=== PATIENT | male | born 1970 | race Caucasian/White ===

== ENCOUNTER 2024-08-09 11:19 | Outpatient (CLI) | payer OTHER, SELFPAY ==
--- NOTE | ~2024-08-09 | CT_ITS ---
CT Scan of the Chest without Contrast: Clinical Indication: Lung nodule Technique: Contiguous sections were acquired throughout the chest without intravenous contrast. Dose reduction technique was used on this scan by utilizing automated exposure control and iterative recon struction technique. The dose-length product (DLP) was 213.37 mGy-cm. Findings: There is no evidence of any significant mediastinal, hilar or axillary lymphadenopathy. Coronary aung ry calcifications present. Small pericardial effusion present. No pleural effusions. 7 mm pleural-based nodule present at the right lower lobe (axial image 82). 4 mm right lower lobe nod ule present (axial and 98). 4 mm left basilar pulmonary nodule present (axial image 122). Additional 2 mm right basilar pulmonary nodule present (axial image 121). Images through the upper abdomen reveal no abnormalities. Impression: Subcentimeter pulmonary nodules, largest measuring 7 mm. According to Fleischner Society criteria, fo r a low-risk patient, recommend follow CT scan in 6-12 months, then consider additional 18-24 month C T. For high-risk patients, follow-up CT scans at both 6-12 months and 18-24 months are recommended. Small pericardial effusion. Reviewed, dictated and finalized at location . Impression: Subcentimeter pulmonary nodules, largest measuring 7 mm. According to Fleischne r Society criteria, for a low-risk patient, recommend follow CT scan in 6-12 mo nths, then consider additional 18-[address] For high-risk patients, follow-u p CT scans at both 6-12 months and 18-24 months are recommended. Small pericardial effusion.
--- OUTSIDE RECORDS SUMMARY | 2024-08-09 11:22 | XMS_ITS | Referral Summary ---
Author Organization [address] Address [address] [place] [id number] Care Team Providers Care Examining Officer Name Role Phone Unknown, Notinfile Primary Care Provider Unavail able Encounters Date Type Department Care Team Description 06/02/2024 2:30 PM AQUATICS COORDINATOR Office Visit [facility] at [address] [address] Neetu Holman NP Swelling of eyelid, left (Primary Dx); Local skin infection from Last 3 Months Allergies Active Allergy Reactions Criticality Noted Date Comments Tramadol Other (See comments) High 11/24/2009 Note: CEZIURES Medications atorvastatin (LIPITOR) 20 mg tablet Take 1 tablet (20 mg total) by mouth daily 4 Active atorvastatin (LIPITOR) 40 mg tablet Take 1 tablet (40 mg total) by mouth daily 4 Active carvediloL (COREG) 25 mg tablet Take 1 tablet (25 mg total) by mouth 2 (two) times a day 3 Active ezetimibe (ZETIA) 10 mg tablet Take 1 tablet (10 mg total) by mouth daily 4 Active fluticasone propionate (FLONASE) 50 mcg/actuation nasal spray Administer 2 sprays in each nostril once daily for 1 week, then may adjust to 1-2 sprays in each nostril once daily 5 Active hydrALAZINE (APRESOLINE) 50 mg tablet Take 1 tablet (50 mg total) by mouth 3 (three) times a day 4 Active ketorolac (TORADOL) 10 mg tablet TAKE 1 TAB BY MOUTH 4 TIMES A DAY NEEDED FOR PAIN-MAX DURATION OF 5 DAYS 5 Active losartan-hydroC HLOROthiazide (HYZAAR) 100-12.5 mg per tablet Losartan Potassium-HCTZ 100-12.5 MG Oral Tablet QTY: 30 Days: 30 Refills: 0 Written: 03/30/22 Patient Instructions: 2 Active NIFEdipine XL 90 mg 24 hr tablet Take 1 tablet (90 mg total) by mouth daily 3 Active omeprazole (PriLOSEC) 40 mg capsule TAKE 1 CAPSULE BY MOUTH EVERY DAY *MAINTENANCE REFILLS EXCEEDED* 5 Active sildenafiL (VIAGRA) 100 mg tablet Take 1 tablet (100 mg total) by mouth as needed 3 Active Active Problems No known active problems Social History Tobacco Use Types Packs/Day Years Used Date Smoking Tobacco: Never Assessed Sex and Gender Information Value Date Recorded Sex Assigned at Not on file Legal Sex Male 7:29 PM AQUATICS COORDINATOR Gender Identity Not on file Sexual Orientation Not on file Last Filed Vital Signs Vital Sign Reading Time Taken Comments Blood Pressure 131/83 06/02/2024 2:40 PM AQUATICS COORDINATOR Pulse 82 06/02/2024 2:40 PM AQUATICS COORDINATOR Temperature 36.5 C (97.7 F) 06/02/2024 2:40 PM AQUATICS COORDINATOR Respiratory Rate 22 06/02/2024 2:40 PM AQUATICS COORDINATOR Oxygen Saturation 94% 06/02/2024 2:40 PM AQUATICS COORDINATOR Inhaled Oxygen Concentration - - Weight 117.9 kg (260 lb) 06/02/2024 2:40 PM AQUATICS COORDINATOR Height - - Body Mass Index - - Plan of Treatment Not on file Insurance [facility] Care Teams Examining Officer Relationship Specialty Start Date End Date Unknown, Notinfile PCP - General 03/21/23
--- OUTSIDE RECORDS SUMMARY | 2024-08-09 11:22 | XMS_ITS | Encounter Summary ---
Author Organization [facility] Address [address] [place] [address] Care Team Providers Care Quality Process Auditor Name Role Phone Heriberto Okeefe MD Primary Care Provider [phone] Encounter Details Date Type Department Care Team (Late st Contact Info) Description 01/03/2021 [facility] Message [facility] [address] [place] [address] Heriberto Okeefe MD [address] [address] RE: Other Social History Tobacco Use Types Packs/Day Years Used Date Smoking Tobacco: Former Cigarettes 1.5 34 1 06/13/1985 - 04/12/2020 Smokeless Tobacco: Never Comments:vaping only right n ow Alcohol Use Standard Drinks/Week Comments No 0 (1 standard drink = 0.6 oz pur e alcohol) AUDIT-C Answer Date Recorded Frequency of Alcohol Consumption Never 04/24/2019 Average Number of Drinks Not on file 019 Frequency of Binge Drinking Not on file 03/31 PHQ-2 Answer Date Recorded PHQ-2 Score - If the patient scores above 3, please move on to questions 3-9 6 11/12/2020 Sex and Gender Information Value Date Recorded Sex Assigned at Not on file Legal Sex Male 7:45 PM CDT Gender Identity Not on file Sexual Orientation Not on file documented as of this encounter Progress Notes * Heriberto Okeefe MD - 01/05/2021 5:26 PM CDT If he just started the combo with HCTZ, give it another month prior to any changes. * Mai Rob RN - 01/05/2021 8:38 AM CDT 1 month update on BP. Any new orders? documented in this encounter Plan of Treatment Not on file documented as of this encounter Visit Diagnoses Not on filedocumented in this encounter Additional Health Concerns Assessment Noted Time PHQ-9 Depression Total Score: 16 07/16 021 2:41 PM CDT documented as of this encounter Care Teams Quality Process Auditor Relationship Specialty Start Date End Date Heriberto Okeefe MD [address] [address] PCP - General FAMILY PRACTICE 12/10/19 documented as of this encounter
--- OUTSIDE RECORDS SUMMARY | 2024-08-09 11:22 | XMS_ITS | Clinical Summary ---
Author Organization [address] Address [address] [place] [phone] Care Team Providers Care Staple Side Laster Name Role Phone Unknown, Notinfile Primary Care Provider Unavail able Allergies Active Allergy Reactions Criticality Noted Date [...] Active Active Problems No known active problems Encounters Date Type Department Care Team Description 06/02/2024 2:30 PM MIXING MACHINE TENDER CORK GASKET Office Visit [facility] at [address] [address] Neetu Holman NP Swelling of eyelid, left (Primary Dx); Local skin infection from Last 3 Months Social History Tobacco Use Types Packs/Day Years Used Date Smoking Tobacco: Never Assessed Sex and Gender Information Value Date Recorded Sex Assigned at Not on file Legal Sex Male 7:29 PM MIXING MACHINE TENDER CORK GASKET Gender Identity Not on file Sexual Orientation Not on file Obstetrics History Last Filed Vital Signs Vital Sign Reading Time Taken Comments Blood Pressure 131/83 06/02/2024 2:40 PM MIXING MACHINE TENDER CORK GASKET Pulse 82 06/02/2024 2:40 PM MIXING MACHINE TENDER CORK GASKET Temperature 36.5 C (97.7 F) 06/02/2024 2:40 PM MIXING MACHINE TENDER CORK GASKET Respiratory Rate 22 06/02/2024 2:40 PM MIXING MACHINE TENDER CORK GASKET Oxygen Saturation 94% 06/02/2024 2:40 PM MIXING MACHINE TENDER CORK GASKET Inhaled Oxygen Concentration - - Weight 117.9 kg (260 lb) 06/02/2024 2:40 PM MIXING MACHINE TENDER CORK GASKET Height - - Body Mass Index - - Plan of Treatment Health Maintenance Due Date Last Done Comments Colon Cancer Screening-Colonoscopy 1968 Depression Screening 1968 Hepatitis C Screening 1968 Prostate Cancer Screening-PSA 1968 Hepatitis B Screening 1986 Regular Well Visit/Exam 18-64 1986 Zoster Vaccine (1 of 2) 2018 Covid-19 Vaccine (2023-2 5 season) 2023 07/30/2020, 07/02/2020 Influenza Vaccine (#1) 2023 , 01/23/2020, 03/27/2018 DTaP/Tdap/Td Vaccine (3 - Td or Tdap) 08/20/2033 08/21/2023, 09/13/2012 Pneumococcal vaccine <65 Aged Out No longer eligible based on patient's age to complete this topic Insurance Care Teams Staple Side Laster Relationship Specialty Start Date End Date Unknown, Notinfile PCP - General 03/21/23
--- OUTSIDE RECORDS SUMMARY | 2024-08-09 11:22 | XMS_ITS | Clinical Summary ---
Author Organization [facility] Address [address] [place] [address] Phone Care Team Providers Care Jet Wiper Name Role Phone Clifford Jensen MD Primary Care Provider [phone] Allergies Active Allergy Reactions Criticality Noted Date Comments Tramadol Other (see Comments) High 11/24/2009 Note: CEZIURES Medications sildenafil citrate (VIAGRA) 100 MG Tablet Take 1 Tablet by mouth as needed for Erectile Dysfunction. 10 Tablet 1 3 Active NIFEdipine (PROCARDIA-XL) 90 MG TABLET SR 24 HR Take 90 mg by mouth daily. 4 Active carvedilol (COREG) 25 MG Tablet Take 25 mg by mouth 2 times daily. Active Ascorbic Acid (VITAMIN C PO) Take 500 mg by mouth daily. Active VITAMIN D PO Take 50,000 Units by mouth daily. Active losartan-hydrochlor othiazide (HYZAAR) 100-12.5 MG Tablet Losartan Potassium-HC TZ 100-12.5 MG Oral Tablet QTY: 30 Days: 30 Refills: 0 Written: 03/30/22 Patient Instructions : 2 Active hydrALAZINE 50 MG Tablet 4 Active atorvastatin (LIPITOR) 20 MG TabletIndications:M ixed hyperlipidemia Take 1 Tablet by mouth daily. 90 Tablet 1 4 Active Active Problems Problem Noted Date Diagnosed Date Chronic pain 03/18/2018 Generalized anxiety disorder 03/18/2018 Hyperlipidemia 03/18/2018 Anxiety 11/24/2009 Dyslipidemia 11/24/2009 Family history of ischemic heart disease 010 History of seizure disorder 11/24/2009 Primary hypertension 11/24/2009 Encounters Date Type Department Care Team Description 06/02/2024 Telephone [facility] [address] [place] [phone] Clifford Jensen MD 05/31/2024 [facility] [address] [place] [address] Radha Hudson, STAGE HAND, SENIOR MAINFRAME PROGRAMMER ANALYST from Last 3 Months Immunizations Immunization Administration Dates Next Due Influenza Vaccine, Quadrivalent, PF 02/25/2021,0 01/23/2020,03/27/2018 Influenza Vaccine,unspecified Formulation 2020,01/23/2020,03/27/2018 TD VACCINE 08/21/2023 TDAP Vaccine 09/13/2012 Family History Medical History Relation Name Comments Cancer Brother Prashanth Lung Cancer Brother Prashanth Heart Attack Father Philip Kidney Disease Mother Millicent Stroke Mother Millicent Congestive Heart Failure Niece 30 Heart Attack Sister 1 Fawn Aneurysm Sister 2 Oliva brain Congestive Heart Failure Sister 2 Oliva Seizures Sister 2 Oliva Relation Name Status Comments Brother Prashanth Alive Father Philip Mother Millicent Niece Sister 1 Fawn Sister 2 Oliva Social History Tobacco Use Types Packs/Day Years Used Date Smoking Tobacco: Former Cigarettes 1.5 38 0 07/29/1984 - 07/29/2022 Smokeless Tobacco: Never Tobacco Cessation:Counseling Given: Not Answered Alcohol Use Standard Drinks/Week Comments Not Currently 0 (1 standard drink = 0.6 oz pur e alcohol) [facility] Utilities Answer Date Recorded In the past 12 months has [employer], gas, oil, or water [employer] threatened to shut off services in your home? No 08/20/2023 Social Connection and Isolation Panel [NHANES] A nswer Date Recorded In a typical week, how many times do you talk on the phone with family, friends, or neighbors? Three times a week 08/20/2023 How often do you get togethe r with friends or relatives? Once a week 08/20/2023 How often do you attend [facility] or restorationism services? Never 08/20/2023 Do you belong to any clubs o r organizations such as jew groups, unions, fraternal or athletic groups, or school groups? No 08/20/2023 How often do you attend meet ings of the clubs or organizations you belong to? Never 08/20/2023 Are you , , di vorced, , never , or living with a partner? 08/20/2023 AUDIT-C Answer Date Recorded Q1: How often do you have a drink containing alcohol? Never 08/20/2023 Q2: How many drinks containi ng alcohol do you have on a typical day when you are drinking? Patient does not drink Q3: How often do you have si x or more drinks on one occasion? Never 08/20/2023 Overall Financial Resource Strain (CARDIA) Answe r Date Recorded How hard is it for you to pa y for the very basics like food, housing, medical care, and heating? Not hard at all 08/20/2023 [facility] - Occupational Stress Questionnaire Answer Date Recorded Do you feel stress - tense, restless, nervous, or anxious, or unable to sleep at night because your mind is troubled all the time - these days? To some extent 08/20/2023 Exercise Vital Sign Answer Date Recorde d On average, how many days pe r week do you engage in moderate to strenuous exercise (like a brisk walk)? 0 days 08/20/2023 On average, how many minutes do you engage in exercise at this level? 0 min 08/20/2023 Hunger Vital Sign Answer Date Recorded Within the past 12 months, y ou worried that your food would run out before you got the money to buy more. Never true 08/20/19 24 Within the past 12 months, t he food you bought just didn't last and you didn't have money to get more. Never true 08/20/2023 PRAPARE - Transportation Answer Date Re corded In the past 12 months, has l ack of transportation kept you from medical appointments or from getting medications? No 07/30 In the past 12 months, has l ack of transportation kept you from meetings, work, or from getting things needed for daily living? No 08/20/2023 Housing Stability Vital Sign Answer [place] e Recorded In the last 12 months, was t here a time when you were not able to pay the mortgage or rent on time? No 08/20/2023 In the last 12 months, how many places have you lived? 1 08/20/2023 In the last 12 months, was t here a time when you did not have a steady place to sleep or slept in a halfway (including now)? No 08/20/2023 Sexually Active Control Partners Comments Yes Female Sex and Gender Information Value Date Recorded Sex Assigned at Not on file Legal Sex Male 11:21 PM CDT Gender Identity Not on file Sexual Orientation Not on file Last Filed Vital Signs Vital Sign Reading Time Taken Comments Blood Pressure 146/98 11/30/2023 4:49 PM CDT Pulse 65 11/30/2023 4:49 PM CDT Temperature 36.6 C (97.8 F) 11/30/2023 4:49 PM CDT Respiratory Rate 17 11/30/2023 4:49 PM CDT Oxygen Saturation 96% 11/30/2023 4:49 PM CDT Inhaled Oxygen Concentration - - Weight 122.5 kg (270 lb) 11/30/2023 4:49 PM CDT Height 185.4 cm (6' 1 ) 11/30/2023 4:49 PM CDT Body Mass Index 35.62 11/30/2023 4:49 PM CDT Plan of Treatment Health Maintenance Due Date Last Done Comments Colonoscopy 2013 Colorectal Cancer Screening 2013 Cologuard 2018 Immunochemical Fecal Occult Blood 2018 Pneumococcal Immunization (50+ years) (1 of 1 - PCV) 2018 Zoster Immunization (1 of 2) 2018 Influenza Immunization (Season Ended) 2024 02/25/2021, 02/25/2021, 01/23/2020, Additional history exists Lung Cancer Screening 01/18/2025 01/19/2024, 024 Td Immunization Every 10 Years (Adults With 1 Tdap) 08/20/2033 08/21/2023, 09/13/2012 Respiratory Syncytial Virus (RSV) Immunization (Adult) (1 - 1-dose 75+ series) 11/11/2043 SARS-COV-2 Immunization Discontinued 07/30/2020, 07/02 DTaP/Tdap/Td Immunization Discontinued 08/21/2023, PSA Discussion Completed 08/28/2023, 09/28, 08/08/2016 Hepatitis B Immunization Discontinued Hepatitis C Virus (HCV) Screening Discontinued Meningococcal Immunization (ACWY) Aged Out No longer eligible based on patient's age to complete this topic Rotavirus Immunization Aged Out No lo nger eligible based on patient's age to complete this topic Procedures Procedure Name Priority Date/Time Associated Diagnosis Comments CT CHEST SCREENING WO Routine 01/19/2024 1:13 PM CDT Lung nodule PSA SCREEN 08/28/2023 12:00 AM CDT from Last 3 Months or Most Recently Relevant to Health Maintenance Results * CT CHEST SCREENING WO (01/19/2024 1:13 PM CDT) Anatomical Region Laterality Modality Chest N/A Computed Tomogra phy 01/24/2024 9:29 AM CDT Impressions 01/24/2024 9:32 AM CDT IMPRESSION: 1. Slight interval increase in size of a left lower lobe pulmonary nodule measuring 6.5 mm today, previously measured 5 mm. 2. An 8 mm average diameter nodule in the right lower lobe is unchanged. Additional pulmonary nodules are unchanged. 3. Mild emphysema. 4. Multivessel coronary artery calcifications. 5. Small pericardial effusion, unchanged. Lung-RADS category 4A: Suspicious. Recommendation: Low dose CT of chest in 3 months. Narrative 01/24/2024 9:32 AM CDT EXAM DESCRIPTION: CT CHEST SCREENING WO REASON FOR STUDY: Screening CT of the chest in a former smoker with a 53 pack year smoking history. Additional history: Stopped smoking age 52. TECHNIQUE: Low dose CT scan of the chest was performed without intravenous contrast using helical scanning technique. The exam extends from the lung apices through the lung bases. Automatic exposure control was used as a dose optimization technique. RADIATION DOSE: CT dose index volume (CTDIvol) = 2.83 mGy COMPARISON: CT chest 10/09/2023 FINDINGS: SMOKING RELATED LUNG DISEASE: Mild emphysema. LUNG NODULES: RIGHT UPPER LOBE: none RIGHT MIDDLE LOBE: Unchanged 4 mm solid nodule on image 178. Unchanged 5 mm solid nodule on image 131 along the pleura. RIGHT LOWER LOBE: Unchanged 8 mm average diameter ovoid solid nodule adjacent to the pleura on image 131. Unchanged 5 mm solid nodule on image 165. Unchanged 5 mm solid nodule on image 175. Unchanged 6 mm solid nodule on image 210. LEFT UPPER LOBE: none LEFT LOWER LOBE: 6.5 mm solid nodule previously measured 5 mm on image 210. CORONARY ARTERY CALCIFICATION: Multivessel coronary artery calcifications. OTHER: There is no pleural effusion or pneumothorax. The central airway is patent. Heart size is normal. There is a small pericardial effusion which is unchanged. Thoracic aorta is normal in course and caliber and contains a small amount of calcified atherosclerotic plaque. There are prominent but nonenlarged mediastinal lymph nodes measuring up to 7 mm. No axillary lymphadenopathy. The visualized portions of the upper abdomen are unremarkable. There are no suspicious osseous lesions. THIS IS AN ELECTRONICALLY VERIFIED FINAL REPORT 01/24/2024 9:29 AM - Electronically signed by Britton Parson M.D. AM: AM Report ID: [id number] Reading Location: [id number] Procedure Note Britton Parson MD - 01/24/2024 EXAM DESCRIPTION: CT CHEST SCREENING WO REASON FOR STUDY: Screening CT of the chest in a former smoker with a 53 pack year smoking history. Additional history: Stopped smoking age 52. TECHNIQUE: Low dose CT scan of the chest was performed without intravenous contrast using helical scanning technique. The exam extends from the lung apices through the lung bases. Automatic exposure control was used as a dose optimization technique. RADIATION DOSE: CT dose index volume (CTDIvol) = 2.83 mGy COMPARISON: CT chest 10/09/2023 FINDINGS: SMOKING RELATED LUNG DISEASE: Mild emphysema. LUNG NODULES: RIGHT UPPER LOBE: none RIGHT MIDDLE LOBE: Unchanged 4 mm solid nodule on image 178. Unchanged 5 mm solid nodule on image 131 along the pleura. RIGHT LOWER LOBE: Unchanged 8 mm average diameter ovoid solid nodule adjacent to the pleura on image 131. Unchanged 5 mm solid nodule on image 165. Unchanged 5 mm solid nodule on image 175. Unchanged 6 mm solid nodule on image 210. LEFT UPPER LOBE: none LEFT LOWER LOBE: 6.5 mm solid nodule previously measured 5 mm on image 210. CORONARY ARTERY CALCIFICATION: Multivessel coronary artery calcifications. OTHER: There is no pleural effusion or pneumothorax. The central airway is patent. Heart size is normal. There is a small pericardial effusion which is unchanged. Thoracic aorta is normal in course and caliber and contains a small amount of calcified atherosclerotic plaque. There are prominent but nonenlarged mediastinal lymph nodes measuring up to 7 mm. No axillary lymphadenopathy. The visualized portions of the upper abdomen are unremarkable. There are no suspicious osseous lesions. THIS IS AN ELECTRONICALLY VERIFIED FINAL REPORT 01/24/2024 9:29 AM - Electronically signed by Britton Parson M.D. AM: AM Report ID: [id number] Reading Location: [id number] IMPRESSION: 1. Slight interval increase in size of a left lower lobe pulmonary nodule measuring 6.5 mm today, previously measured 5 mm. 2. An 8 mm average diameter nodule in the right lower lobe is unchanged. Additional pulmonary nodules are unchanged. 3. Mild emphysema. 4. Multivessel coronary artery calcifications. 5. Small pericardial effusion, unchanged. Lung-RADS category 4A: Suspicious. Recommendation: Low dose CT of chest in 3 months. Divya Ochoa APRN, BRITTANY IMG CT ORDERABLES Fi nal Result * PSA SCREEN (08/28/2023 12:00 AM CDT) PSA SCREEN, TOTAL 0.4 SCAN 08/28/2023 Provider Scan CHEMISTRY ORDERABLES Final Resul t SCAN from Last 3 Months or Most Recently Relevant to Health Maintenance Insurance [facility] Care Teams Jet Wiper Relationship Specialty Start Date End Date Clifford Jensen MD [address] [place] [id number] PCP - General Family Medicine 09/27/21
--- OUTSIDE RECORDS SUMMARY | 2024-08-09 11:22 | XMS_ITS | Clinical Summary ---
Author Organization [employer] [facility] Address [address] [facility] Attn: Epic Prelude ADT SIRI HOLT [place] [address] Care Team Providers Care Pocket Maker Name Role Phone Unavailable Primary Care Provider Unavailabl e Medications atorvastatin (LIPITOR) 40 mg tablet Take 1 Tablet (40 mg) by mouth daily. 90 Tablet 3 04/14/2024 3:57 PM FAGOTING MACHINE OPERATOR 4 Active ezetimibe (ZETIA) 10 mg tablet Take 1 Tablet (10 mg) by mouth daily. 90 Tablet 3 04/14/2024 3:57 PM FAGOTING MACHINE OPERATOR 4 Active carvediloL (COREG) 25 mg tablet Take 1 Tablet (25 mg) by mouth 2 times daily. 180 Tablet 3 04/14/2024 3:57 PM FAGOTING MACHINE OPERATOR 4 Active carvediloL (COREG) 25 mg tablet Take 1 Tablet (25 mg) by mouth 2 times daily. 180 Tablet 3 4 Active atorvastatin (LIPITOR) 20 mg tablet Take 1 Tablet (20 mg) by mouth daily. 90 Tablet 1 4 Active losartan (COZAAR) 100 mg tablet Take 1 Tablet (100 mg) by mouth daily. 90 Tablet 3 07/20/2024 2:59 PM CDT 4 Active carvediloL (COREG) 25 mg tablet Take 1 Tablet (25 mg) by mouth 2 times daily. 180 Tablet 3 07/27/2024 3:19 PM CDT 4 Active NIFEdipine (PROCARDIA XL) 90 mg Extended Release 24 hour tablet Take 1 Tablet (90 mg) by mouth daily. 90 Tablet 2 07/20/2024 2:59 PM CDT 4 Active fluticasone propionate (FLONASE) 50 mcg/spray [place], Suspension nasal inhaler Administer 2 sprays in each nostril once daily for 1 week, then may adjust to 1-2 sprays in each nostril once daily 16 Gram 06/02/2024 3:26 PM FAGOTING MACHINE OPERATOR 5 Active cephALEXin (KEFLEX) 500 mg capsule Take 1 capsule (500 mg total) by mouth 4 (four) times a day for 10 days 40 Capsule 06/02/2024 3:26 PM FAGOTING MACHINE OPERATOR 5 Active HYDROcodone-ac etaminophen (NORCO) 10-325 mg Tablet Take 1 Tablet by mouth 3 times daily as needed. Max Daily Amount: 3 Tablets 21 Tablet 06/07/2024 11:40 AM FAGOTING MACHINE OPERATOR 5 Active HYDROcodone-ac etaminophen (NORCO) 10-325 mg Tablet Take 1 Tablet by mouth 3 times daily as needed 21 Tablet 07/03/2024 12:19 PM FAGOTING MACHINE OPERATOR 5 Active HYDROcodone-ac etaminophen (NORCO) 10-325 mg Tablet Take 1 Tablet by mouth 3 times daily as needed. Max Daily Amount: 3 Tablets 21 Tablet 07/11/2024 6:40 PM CDT 5 Active omeprazole (PriLOSEC) 40 mg Capsule, Delayed Release(E.C.) Take 1 Capsule (40 mg) by mouth daily. 30 Capsule 5 07/23/2024 3:30 PM CDT 5 Active HYDROcodone-ac etaminophen (NORCO) 10-325 mg Tablet Take 1 Tablet by mouth 3 times daily as needed 90 Tablet 07/23/2024 3:30 PM CDT 5 Active HYDROcodone-ac etaminophen (NORCO) 10-325 mg Tablet Take 1 Tablet by mouth 3 times daily as needed 90 Tablet 5 Active HYDROcodone-ac etaminophen (NORCO) 10-325 mg Tablet Take 1 Tablet by mouth 3 times daily. 90 Tablet 5 Active hydrALAZINE (APRESOLINE) 50 mg tablet Take 1 Tablet (50 mg) by mouth 3 times daily. 90 Tablet 6 08/03/2024 1:17 PM CDT 5 Active hydrALAZINE (APRESOLINE) 50 mg tablet Take 1 Tablet (50 mg) by mouth 3 times daily. 90 Tablet 6 06/25/2024 6:42 PM FAGOTING MACHINE OPERATOR 4 08/01/19 25 Discontinu ed(Reorder ) omeprazole (PriLOSEC) 40 mg Capsule, Delayed Release(E.C.) Take 1 Capsule (40 mg) by mouth daily. 30 Capsule 06/16/2024 7:39 PM FAGOTING MACHINE OPERATOR 5 07/19/19 25 Discontinu ed(Reorder ) omeprazole (PriLOSEC) 40 mg Capsule, Delayed Release(E.C.) Take 1 Capsule (40 mg) by mouth daily. 30 Capsule 1 07/20/2024 2:59 PM CDT 5 07/23/19 25 Discontinu ed(Reorder ) Encounters Date Type Department Care Team Description 07/09/2024 External Device Data [facility] ABSTRACTION Provider, Abstract 07/08/2024 External Device Data [facility] ABSTRACTION Provider, Abstract 06/10/2024 External Device Data [facility] ABSTRACTION Provider, Abstract 05/13/2024 External Device Data [facility] ABSTRACTION Provider, Abstract from Last 3 Months Social History Tobacco Use Types Packs/Day Years Used Date Smoking Tobacco: Never Assessed Sex and Gender Information Value Date Recorded Sex Assigned at Not on file Legal Sex Male 4:57 PM CDT Gender Identity Not on file Sexual Orientation Not on file Plan of Treatment Health Maintenance Due Date Last Done Comments Pre-Diabetes and Diabetes Screening 1968 DTAP/TDAP/TD VACCINES (1 - Tdap) 11/11/1987 HEPATITIS B VACCINES (1 of 3 - 19+ 3-dose series) 10/28 COLORECTAL SCREENING 2013 Colorectal Cancer Screening 2013 FIT-DNA Q 3 years 2013 FIT/FOBT Q 1 year 2013 Flex Sig/CT Colonography Q 5 years 2013 ZOSTER VACCINE (1 of 2) 2018 INFLUENZA VACCINE (#1) 2023 Insurance RX [employer] Member Subscriber Plan / Payer (Ef fective 2024-Present) Name:Philip Prescott Relation to Subscriber:Self Name:Phliip Prescott Subscriber ID:Not on file Payer ID:Not on file Type:Not on file Address: [place] [employer] [employer] ([employer]) [facility] [employer] [employer]
--- OUTSIDE RECORDS SUMMARY | 2024-08-09 11:22 | XMS_ITS | Encounter Summary ---
Author Organization [facility] Address [address] [place] [address] Care Team Providers Care District Director Name Role Phone Pam Mott EMOTIONALLY IMPAIRED TEACHER-C Primary Care Provider Heriberto Okeefe MD Primary Care Provider [phone] Encounter Details Date Type Department Care Team (Late st Contact Info) Description 12/08/2019 Expert[employer]er Message [facility] [address] [place] [address] Heriberto Okeefe MD [address] [id number] Medication Questions Social History Tobacco Use Types Packs/Day Years Used Date Smoking Tobacco: Some Days Cigarettes 1.5 34 Smokeless Tobacco: Never Alcohol Use Standard Drinks/Week Comments No 0 (1 standard drink = 0.6 oz pur e alcohol) AUDIT-C Answer Date Recorded Frequency of Alcohol Consumption Never 04/24/2019 Average Number of Drinks Not on file 019 Frequency of Binge Drinking Not on file 03/31 Sex and Gender Information Value Date Recorded Sex Assigned at Not on file Legal Sex Male 7:45 PM CDT Gender Identity Not on file Sexual Orientation Not on file COVID-19 Exposure Response Date Recorded In the last month, have you been in contact with someone who was confirmed or suspected to have Coronavirus / COVID-19? No / Unsure 11/17/2019 1:43 PM CDT documented as of this encounter Progress Notes * Heriberto Okefee MD - 12/09/2019 11:10 AM CDT Ok for refill norco if due. documented in this encounter Plan of Treatment Not on file documented as of this encounter Visit Diagnoses Not on filedocumented in this encounter Care Teams District Director Relationship Specialty Start Date End Date Pam Mott, EMOTIONALLY IMPAIRED TEACHER-C PCP - General Nurse Practitioner Family 11/17/1911/28 Heriberto Okeefe MD [address] [place] [address] PCP - General FAMILY PRACTICE 12/10/19 documented as of this encounter
--- OUTSIDE RECORDS SUMMARY | 2024-08-09 11:22 | XMS_ITS | Encounter Summary ---
Author Organization [facility] Address [address] [place] [address] Phone Care Team Providers Care Math Coach Name Role Phone Clifford Jensen MD Primary Care Provider [phone] Reason for Visit * Reason Comments Medication Refill Encounter Details Date Type Department Care Team (Late st Contact Info) Description 03/15/2023 Refill [facility] - Family Medicine [facility] [address] [place] [address] Clifford Jensen MD [address] [address] Medication Refill Social History Tobacco Use Types Packs/Day Years Used Date Smoking Tobacco: Every Day Smokeless Tobacco: Never Alcohol Use Standard Drinks/Week Comments Never 0 (1 standard drink = 0.6 oz pur e alcohol) Sexually Active Control Partners Comments Yes Female Sex and Gender Information Value Date Recorded Sex Assigned at Not on file Legal Sex Male 11:21 PM CDT Gender Identity Not on file Sexual Orientation Not on file documented as of this encounter Miscellaneous Notes * Telephone Encounter - Zoila Gil RN - 03/15/2023 2:35 PM RESERVATIONS SPECIALIST Medication failed the protocol, provider to review and approve the medication order if appropriate. Requested Prescriptions Pending Prescriptions Disp Refills atorvastatin (LIPITOR) 20 MG Tablet [Pharmacy Med Name: ATORVASTATIN 20MG] 90 Tablet 0 Sig: Take 1 Tablet by mouth daily. Hmg CoA Reductase Inhibitors Protocol Failed - 03/15/2023 2:26 PM Failed - Visit with relevant provider in past 12 months or upcoming 90 days Recent Visits No visits were found meeting these conditions. Showing recent visits within past 365 days and meeting all other requirements Future Appointments No visits were found meeting these conditions. Showing future appointments within next 90 days and meeting all other requirements Failed - Lipid panel in past 12 months LDL Date Value Ref Range Status 10/08/2021 70 5 - 130 mg/dL Final HDL CHOLESTEROL Date Value Ref Range Status 10/08/2021 29.4 (L) >40 mg/dL Final CHOLESTEROL Date Value Ref Range Status 10/08/2021 175 <=200 mg/dL Final TRIGLYCERIDES Date Value Ref Range Status 10/08/2021 379 (H) <150 mg/dL Final VLDL Date Value Ref Range Status 10/08/2021 76 (H) 5 - 55 mg/dL Final CHOL/HDL RATIO Date Value Ref Range Status 10/08/2021 6.0 (H) 0.0 - 4.4 Final NON-HDL CHOLESTEROL Date Value Ref Range Status 10/08/2021 145.6 (H) <130 mg/dL Final Failed - CMP in past 12 months SODIUM Date Value Ref Range Status 10/08/2021 135 (L) 136 - 144 mmol/L Final POTASSIUM Date Value Ref Range Status 10/08/2021 4.2 3.5 - 5.1 mmol/L Final CHLORIDE Date Value Ref Range Status 10/08/2021 99 (L) 100 - 110 mmol/L Final CO2, VENOUS Date Value Ref Range Status 10/08/2021 25 22 - 32 mmol/L Final ANION GAP Date Value Ref Range Status 10/08/2021 15.2 8.0 - 20.0 mmol/L Final GLUCOSE Date Value Ref Range Status 10/08/2021 145 (H) 70 - 99 mg/dL Final BUN Date Value Ref Range Status 10/08/2021 18 6 - 20 mg/dL Final CREATININE, BLOOD Date Value Ref Range Status 10/08/2021 0.74 (L) 0.80 - 1.30 mg/dL Final BUN/CREATININE RATIO Date Value Ref Range Status 10/08/2021 24 (H) 12 - 20 ratio Final TOTAL PROTEIN Date Value Ref Range Status 10/08/2021 7.2 6.0 - 8.3 g/dL Final ALBUMIN Date Value Ref Range Status 10/08/2021 4.4 3.5 - 5.2 g/dL Final Comment: The colormetric methods used for the determination of Albumin may lead to falsely elevated test results in patients suffering from renal failure or insufficiency due to interference with other proteins. A/G RATIO Date Value Ref Range Status 10/08/2021 1.6 1.0 - 2.0 Final CALCIUM Date Value Ref Range Status 10/08/2021 8.9 8.9 - 10.3 mg/dL Final T BILI Date Value Ref Range Status 10/08/2021 <0.3 <=1.2 mg/dL Final SGOT (AST) Date Value Ref Range Status 10/08/2021 19 <=40 U/L Final SGPT (ALT) Date Value Ref Range Status 10/08/2021 24 <=41 U/L Final ALKALINE PHOSPHATASE Date Value Ref Range Status 10/08/2021 100 40 - 130 U/L Final GFR, EST. NONAFRICAN Date Value Ref Range Status 10/08/2021 >60 >=60 Final GFR, EST. Date Value Ref Range Status 10/08/2021 >60 >=60 Final Comment: Creatinine Clearance is the preferred criteria for selecting drug dose adjustments in renally impaired patients. The GFR is provided as additional pertinent clinical information. GFR is reported in mL/min/1.73 sq m. IS THE PATIENT REQUIRED TO BE FASTING? Date Value Ref Range Status 10/08/2021 No Final RVATIONS SPECIALIST documented in this encounter Plan of Treatment Not on file documented as of this encounter Visit Diagnoses Not on filedocumented in this encounter Care Teams Math Coach Relationship Specialty Start Date End Date Clifford Jensen MD [address] [place] [address] PCP - General Family Medicine 09/27/21 documented as of this encounter
--- OUTSIDE RECORDS SUMMARY | 2024-08-09 11:22 | XMS_ITS | Encounter Summary ---
Author Organization [facility] Address [address] [place] [address] Care Team Providers Care Visual Education Director Name Role Phone Antonio Timmons MD Primary Care Provider + Pam Mott DIET TECH-C Primary Care Provider Heriberto Okeefe MD Primary Care Provider [phone] Encounter Details Date Type Department Care Team (Late st Contact Info) Description 09/06/2006 Abstract [facility] Conversion , Generic ConversionMD Social History Tobacco Use Types Packs/Day Years Used Date Smoking Tobacco: Never Assessed Sex and Gender Information Value Date Recorded Sex Assigned at Not on file Legal Sex Male 7:45 PM CDT Gender Identity Not on file Sexual Orientation Not on file documented as of this encounter Plan of Treatment Not on file documented as of this encounter Visit Diagnoses Not on filedocumented in this encounter Care Teams Visual Education Director Relationship Specialty Start Date End Date Antonio Timmons MD [address] [facility] [address] [place] [address] PCP - General FAMILY PRACTICE 02/07/18 11/16/19 Pam Mott DIET TECH-C [facility] [facility] [address] [place] [address] PCP - General Nurse Practitioner Family 11/17/1911/28 Heriberto Okeefe MD [address] [address] PCP - General FAMILY PRACTICE 12/10/19 documented as of this encounter
--- OUTSIDE RECORDS SUMMARY | 2024-08-09 11:22 | XMS_ITS | Clinical Summary ---
Author Organization [facility] Address [facility] [place] [address] Care Team Providers Care Loft Worker Name Role Phone Heriberto Okeefe MD Primary Care Provider [phone] Allergies Active Allergy Reactions Criticality Noted Date Comments Tramadol Seizure 03/18/2018 Medications sertraline 100 MG tablet 1 Active chlordiazePOXIDE 25 MG capsule 1 Active nitroglycerin 0.4 MG SL tablet 1 Active hydrOXYzine 50 MG tablet TAKE 1/2 TO 1 TABLET BY MOUTH THREE TIMES DAILY NEEDED FOR ANXIETY/JENNIFER C ATTACKS 1 Active gabapentin 300 MG capsule TAKE ONE CAPSULE BY MOUTH THREE TIMES DAILY NEEDED FOR ANXIETY 1 Active losartan-hydroCHLOR Othiazide 100-25 MG tabletIndications:E ssential hypertension Take 1 tablet by mouth daily. New strength 90 tablet 1 2 Active amLODIPine 10 MG tabletIndications:H ypertension, unspecified type Take 1 tablet (10 mg total) by mouth daily. 90 tablet 1 2 Active atenolol 50 MG tabletIndications:H ypertension, unspecified type Take 1 tablet (50 mg total) by mouth daily. 90 tablet 2 Active atorvastatin 20 MG tabletIndications:H yperlipidemia, unspecified hyperlipidemia type Take 1 tablet (20 mg total) by mouth daily. 90 tablet 2 Active sildenafil 100 MG tabletIndications:M carly sexual dysfunction Take 1 tablet (100 mg total) by mouth daily as needed. 3 tablet 2 2 Active HYDROcodone-acetami nophen 10-325 MG tabletIndications:C hronic Pain Take 1 tablet by mouth every 6 (six) hours as needed. Indications: Chronic Pain Quantity: 112 tablets 112 tablet 2 Active Active Problems Problem Noted Date Diagnosed Date Essential hypertension 03/18/2018 Hyperlipidemia 03/18/2018 Generalized anxiety disorder 03/18/2018 Chronic pain 03/18/2018 Immunizations Name Administration Dates Next Due Influenza (Generic) 03/27/2018 Influenza Adult (Generic) 02/25/2021,01/23/2020 Tdap (Generic) 09/13/2012 Family History Medical History Relation Comments Heart Attack Father Hypertension Mother Relation Status Comments Father Mother Social History Tobacco Use Types Packs/Day Years Used Date Smoking Tobacco: Former Cigarettes 1.5 34 1 06/13/1985 - 04/12/2020 Smokeless Tobacco: Never Tobacco Cessation:Ready to Q uit: Yes Comments:vaping only right now Alcohol Use Standard Drinks/Week Comments No 0 (1 standard drink = 0.6 oz pur e alcohol) AUDIT-C Answer Date Recorded Frequency of Alcohol Consumption Never 04/24/2019 Average Number of Drinks Not on file 019 Frequency of Binge Drinking Not on file 03/31 PHQ-2 Answer Date Recorded PHQ-2 Score - If the patient scores above 3, please move on to questions 3-9 0 02/11/2021 Sex and Gender Information Value Date Recorded Sex Assigned at Not on file Legal Sex Male 7:45 PM CDT Gender Identity Not on file Sexual Orientation Not on file Last Filed Vital Signs Vital Sign Reading Time Taken Comments Blood Pressure 183/111 11/12/2020 2:46 PM CDT Pulse 86 11/12/2020 2:46 PM CDT Temperature 36.7 C (98.1 F) 11/12/2020 2:46 PM CDT Respiratory Rate 18 11/12/2020 2:46 PM CDT Oxygen Saturation 94% 11/12/2020 2:46 PM CDT Inhaled Oxygen Concentration - - Weight 110.1 kg (242 lb 12.8 oz) 11/12/2020 2:46 PM CDT Height 185.4 cm (6' 1 ) 11/12/2020 2:46 PM CDT Body Mass Index 32.03 11/12/2020 2:46 PM CDT Plan of Treatment Health Maintenance Due Date Last Done Comments Colorectal Cancer Screening Colonoscopy (10 Years) 1968 Annual Physical 11/11/1971 Hepatitis C 1986 Hepatitis B Vaccines (1 of 3 - 19+ 3-dose series) 11/11/1987 Zoster Vaccines (1 of 2) 2018 DTaP, Tdap and Td Vaccines ( 2 - Td or Tdap) 09/13/2022 09/13/2012 COVID-19 Vaccine (3 - 2023-2 5 season) 2023 07/30/2020, 07/02/2020 PHQ-2 (Physician Shel[place]iana) 04/30/2024 Meningococcal B Vaccine Aged Out No l onger eligible based on patient's age to complete this topic Meningococcal Vaccine Aged Out No lj ekaterina eligible based on patient's age to complete this topic Pneumococcal Vaccine: Pediatrics (0 to 5 Years) and At-Risk Patients (6 to 64 Years) Aged Out No longer eligible b ased on patient's age to complete this topic RSV Immunizations Under 20 Months Aged Out No longer eligible b ased on patient's age to complete this topic Insurance Member Subscriber Plan / Payer (Ef fective 2020-Present) Name:Philip Garza Relation to Subscriber:Self Name:Philip Garza Payer ID:[id number] ([facility]) Type:Not on file Address: [address] Care Teams Loft Worker Relationship Specialty Start Date End Date Heriberto Okeefe MD [address] [facility] [address] [place] [address] PCP - General FAMILY PRACTICE 12/10/19
--- OUTSIDE RECORDS SUMMARY | 2024-08-09 11:22 | XMS_ITS | Encounter Summary ---
Author Organization [facility] Address [address] [place] [address] Care Team Providers Care Shared Services And Outsourcing Manager Name Role Phone Antonio Timmons MD Primary Care Provider + Pam Mott TWO WAY RADIO TECHNICIAN-C Primary Care Provider [phone] Heriberto Okeefe MD Primary Care Provider [phone] Encounter Details Date Type Department Care Team (Late st Contact Info) Description 10/05/2009 Abstract [facility] Conversion , Generic ConversionMD Social [...] on filedocumented in this encounter Care Teams Shared Services And Outsourcing Manager Relationship Specialty Start Date End Date Antonio Timmons MD [address] [facility] [address] [place] [address] PCP - General FAMILY PRACTICE 02/07/18 11/16/[address] RADIO TECHNICIAN-C [facility] [facility] [address] [place] [address] PCP - General Nurse Practitioner Family 11/17/1911/28 Heriberto Okeefe MD [address] [address] PCP - General FAMILY PRACTICE 12/10/19 documented as of this encounter
--- OUTSIDE RECORDS SUMMARY | 2024-08-09 11:22 | XMS_ITS | CONTINUITY OF CARE DOCUMENT ---
Author Name austin avila Address Unknown Organization [facility] Address [address] [place] [address] Phone [phone] Care Team Providers Care Diesel Engine Assembler Name Role Phone Matthias Moe MD Unavailable MICHAELLE CHAHAL MD Unavailable MICHAELLE CHAHAL MD Unavailable [phone] PROBLEMS Condition Status Date Provider Notes Lower extremity edema active Quan Olea ANXIETY active Jaydemukul Guerra HTN ESSENTIAL active Jaydemukul Mortoneal SEIZURES, HX OF active Jayde Charlie DYSLIPIDEMIA active Jayde Guerra CORONARY ARTERY DISEASE, FAM ISAI HX completed - Matthias Moe MD Tobacco abuse--quit, now vapes active Gulshan Moe MD CHEST PAIN-09/06 NUC NEG EF 53 completed - Lenny Moe MD SOB DO SPIROMETRY-02/06 STUD Y NL , SLEEP STUDY completed - Matthias Moe MD Shortness of breath--echo ef nl, 06/2022 active Matthias Moe MD Family hx of heart disease active Matthias kwok MD Chest pain--PET stress nl, 10/2023 calcium score 654, 06/2022 active Quan Olea Cardiology examination active Matthias Moe MD CHRISTINA--severe, refuses cpap active Quan rojo Atherosclerosis, coronary active Quan rojo Lung nodule active Quan Olea ENCOUNTERS Date Type Provider Location Encounter Diag nosis - In-person encounter Office Visit Matthias Moe MD [facility] - In-person encounter Office Visit Matthias Moe MD [facility] CHRISTINA--severe, refuses cpap - In-person encounter Office Visit Matthias Moe MD [facility] Chest pain--PET stress nl, 10/2023 calcium score 654, 06/2022OSA--severe, refuses cpapAtherosclerosis, coronaryLung nodule - In-person encounter Office Visit Matthias Moe MD [facility] Cardiology examinationOSA--severe , refuses cpap - In-person encounter Office Visit Matthias Moe MD [facility] Tobacco abuse--quit, now vapes - In-person encounter Office Visit Matthias Moe MD [facility] CHEST PAIN-09/06 NUC NEG EF 53Shortness of breath--echo ef nl, hest pain--PET stress nl, 10/2023 calcium score 654, 06/2022 - In-person encounter Office Visit Matthias Moe MD [facility] CORONARY ARTERY DISEASE, FAMILY HXSOB DO SPIROMETRY-02/06 STUDY NL , SLEEP STUDYShortness of breath--echo ef nl, 06/2022Family hx of heart disease - In-person encounter Office Visit Matthias Moe MD [facility] SOB DO SPIROMETRY-02/06 STUDY NL , SLEEP STUDY VITAL SIGNS Date Observation Value Provider Body Mass Index (Ratio) 34.58 kg/m2 Lenny Moe MD blood pressure, diastolic 87 mm[Hg] Bruce Graves blood pressure, systolic 133 mm[Hg] Eric Graves oxygen saturation, oximetry 99 % Hoda Graves pulse rate 69 /min Hoda Krishnamurthyundmarin s blood pressure, cuff size regular Bruce Graves weight E&M 255 [lb_av] Hoda Baker s height E&M 72 [in_i] Hoda Baker s Body Mass Index (Ratio) 35.15 kg/m2 Lenny Moe MD weight E&M 259.2 [lb_av] Yearon Godfrey blood pressure, cuff size regular Ye chantel Godfrey blood pressure, diastolic 82 mm[Hg] Ye chantel Godfrey blood pressure, systolic 140 mm[Hg] Paige bradshaw Godfrey oxygen saturation, oximetry 97 % Yearon Godfrey pulse rate 74 /min Yearon Godfrey height E&M 72 [in_i] Kyaron Godfrey Body Mass Index (Ratio) 36.21 kg/m2 Lenny Moe MD weight E&M 267 [lb_av] Keri Dee pulse rate 84 /min Keri Dee blood pressure, cuff size regular Ta bitha Dee blood pressure, diastolic 94 mm[Hg] Ta bitha Dee blood pressure, systolic 144 mm[Hg] Tab itha Dee oxygen saturation, oximetry 96 % Keri Dee respiratory rate E&M 12 /min Keri Dee height E&M 72 [in_i] Keri Dee Body Mass Index (Ratio) 36.21 kg/m2 Lenny Moe MD blood pressure, cuff size regular Ta bitha Dee blood pressure, diastolic 108 mm[Hg] Ta bitha Dee blood pressure, systolic 170 mm[Hg] Tab itha Dee oxygen saturation, oximetry 93 % Keri Gary respiratory rate E&M 12 /min Keri Gary pulse rate 77 /min [facility] weight E&M 267 [lb_av] [facility] [in_i] [facility] Body Mass Index (Ratio) 33.77 kg/m2 Lenny Moe MD weight E&M 249 [lb_av] [facility] height E&M 72 [in_i] [facility] blood pressure, cuff size regular [facility] blood pressure, diastolic 101 mm[Hg] [facility] blood pressure, systolic 166 mm[Hg] [facility] pulse rate 78 /min [facility] oxygen saturation, oximetry 96 % [facility] respiratory rate E&M 16 /min Christiane Rey dre Body Mass Index (Ratio) 32.95 kg/m2 Lenny Moe MD blood pressure, diastolic 99 mm[Hg] Vaishali francis Boss blood pressure, systolic 170 mm[Hg] Any gareth Boss oxygen saturation, oximetry 96 % Alexusgareth Boss pulse rate 82 /min Alexusgareth Boss weight E&M 243 [lb_av] Alexusgareth Boss blood pressure, cuff size large An francis Boss height E&M 72 [in_i] Alexusgareth Boss blood pressure, diastolic 104 mm[Hg] Jyoti nkLog blood pressure, systolic 160 mm[Hg] Radha kLog Body Mass Index (Ratio) 33.50 kg/m2 Lenny Moe MD blood pressure, diastolic 104 mm[Hg] Vaishali francis Boss blood pressure, systolic 160 mm[Hg] Any a Gera height E&M 72 [in_i] Alexusgareth Boss weight E&M 247 [lb_av] Alexus Egra oxygen saturation, oximetry 96 % Alexus Gera pulse rate 72 /min Alexus Gera blood pressure, cuff size large An francis Gera blood pressure, diastolic 77 mm[Hg] Alejandra BrownCristino blood pressure, systolic 114 mm[Hg] Regina BrownCristino pulse rate 98 /min Renuka O'Cristino oxygen saturation, oximetry 92 % Renuka O'Cristino respiratory rate E&M 20 /min Renuka O'Cristino weight E&M 233 [lb_av] Renuka O'Cristino ALLERGIES Allergy Name Onset Date Reaction Criticality Status ULTRAM High Criticality active RESULTS Date Observation Value Provider Reference Range Interpretation Location anion gap, serum 13.6 [facility] globulins, serum, total 3.5 g/dL [facility] estimated glomerular filtration rate >60 [facility] albumin/globulin ratio, serum 1.1 [facility] protein, total, serum 7.4 g/dL [facility] albumin, serum 3.9 g/dL [facility] bilirubin, serum, total 0.36 mg/dL [facility] alkaline phosphatase, serum 124 1/L [facility] alanine aminotransferase (SGPT), serum 50 1/L [facility] aspartate aminotransferase (SGOT), serum 20 1/L [facility] calcium, serum 9.4 mg/dL [facility] blood glucose, fasting 115 mg/dL [facility] creatinine, serum 1.04 mg/dL [facility] urea nitrogen, blood 16.5 mg/dL [facility] carbon dioxide, serum, total 27 mmol/L [facility] chloride, serum 100 mmol/L Janet Plascencia potassium, serum 4.6 mmol/L Janet Plascencia sodium, serum 136 mmol/L Janet Plascencia platelet count 278 10*3/uL Janet Plascencia red blood cell distribution width 13.2 % Janet Plascencia mean corpuscular hemoglobin concentration, RBC 34.4 g/dL Janet Plascencia mean corpuscular hemoglobin, RBC 31.3 pg Janet Plascencia mean corpuscular volume, RBC 90.9 fL Janet Plascencia hematocrit, blood 43.0 % Janet Plascencia hemoglobin, blood 14.8 g/dL Janet Plascencia erythrocyte (RBC) count 4.73 10*6/mm3 Janet Plascencia monocytes as percent of blood leukocytes 8.2 % Janet Plascencia lymphocytes as percent of blood leukocytes 20.5 % Janet Plascencia leukocyte count, blood 10.7 10*3/mm3 Janet Plascencia HISTORY OF MEDICATION USE Medication Status Instructions Dates Provider Indications Com ments hydralazine 50 mg tablet active Take 1 Tablet (50 mg) by mouth 3 times daily. Quan Olea ezetimibe 10 mg tablet active TAKE 1 TABLET BY MOUTH EVERY DAY Quan Olea hydralazine 50 mg tablet completed Take 1 tablet by mouth twice daily - Quan Olea hydralazine 25 mg tablet completed Take 1 tablet by mouth twice daily - Quan Olea nifedipine 90 mg tablet extended release 24hr active TAKE 1 TABLET BY MOUTH ONCE A DAY [facility] Specialist nifedipine 60 mg tablet extended release completed Take 1 tablet by mouth once a day - Aileen Chong nicotine 7 mg/24 hr patch 24 hour active Apply 1 patch to skin once a day Quan Olea carvedilol 25 mg tablet active Take 1 tablet by mouth twice a day [facility] losartan 100 mg tablet active Take 1 tablet by mouth once a day Becca Branham losartan-hydrochlo rothiazide 100-12.5 mg tablet completed - Quan Olea atenolol 50 mg tablet completed - Quan Olea amlodipine 10 mg tablet completed - Quan Olea atorvastatin 40 mg tablet active TAKE 1 TABLET BY MOUTH EVERY DAY Quan Olea Lipitor 20 mg tablet completed 1 tab by mouth daily - Quan Olea nicotine 14 mg/24 hr patch 24 hour completed 1 tab by mouth daily - Quan Olea cyclobenzaprine 10 mg tablet completed 1 tab by mouth daily - Quan Olea Benicar HCT 40-25 mg tablet completed 1 tab by mouth daily - Quan Olea Zetia 10 mg tablet completed 1 tab by mout h daily - Quan Olea atenolol 25 mg tablet completed ONE TAB. DAILY - Quan Olea HYDROCODONE-ACETAM INOPHEN 10-650 MG ORAL TABLET completed 1 tab twice daily - Quan Olea alprazolam 2 mg tablet completed 1 tab by mouth twice daily - Quan Olea SOCIAL HISTORY Date Observation Value Provider smoking status Smoker Quan Olea smoking status Smoker Quan Olea smoking status Smoker Quan Olea smoking status Smoker Quan Olea social history reviewed E&M revi ewed - no changes required Quan Olea social history E&M Marital Statu s: L [place] with family/friends E thnicity: Smoking History: Quan Olea social history reviewed E&M revi ewed - no changes required Quan Olea caffeine use, averag e drinks per day yes Alexus Gera smoking status Smoker Alexus Gera social history E&M Marital Statu s: L br[place] with family/friends E thnicity: Smoking History: Quan Olea smoking status Smoker Alexus Gera caffeine use, averag e drinks per day yes Alexusgareth Boss social history reviewed E&M revi ewed - no changes required Quan Olea smoking/tobacco cess ation, patient education and counseling yes Gera Bravo RN social history E&M Marital Statu s: L br[place] with family/friends E thnicity: Gera Bravo RN caffeine use, averag e drinks per day yes Gera Bravo RN alcohol use, average drinks per day no Gera Bravo RN social history reviewed E&M reviewed Gera Bravo RN smoking status Smoker Gera Bravo RN FUNCTIONAL STATUS Date Observation Value Provider HRA, CV Assess/Plan, Angina (inactive) Management Plan continue current therapy Quan Olea HRA, CV Assess/Plan, Angina (inactive) Management Plan continue current therapy Quan Olea MENTAL STATUS Date Observation Value Provider assessment of judgme nt and insight E&M Alert and oriented to time, place and person. depressed affect. Gera Bravo RN INSURANCE PROVIDERS Payer name Policy type / Coverage type Lizemores red republican ID [employer] insurance [employer] [id number] ADVANCE DIRECTIVES Name Date DISCUSSED - NO DECISION MADE TREATMENT PLAN Date Name Performer [id number],SQuan i [id number],S, Quan Casper i [id number],SQuan i [id number],SQuan i [id number],S, Quan Ahmedza i [id number],S, Quan Ahmedza i [id number],S, Quan Ahmedza i [id number],S, Quan Ahmedza i [id number],S, Quan Ahmedza i [id number],S, Quan Ahmedza i [id number],S, Quan Ahmedza i [id number],S, Quan Ahmedza i [id number],S, Quan Ahmedza i [id number],S, Quan Ahmedza i [id number],S, Quan Mukulmedza i [id number],S, Quan Ahmedza i [id number],S, Quan Ahmedza i Cardiology: H is updated medication list for this problem includes: Hydralazine 50 Mg Tablet (Hydralazine) ..... Take 1 tablet by mouth twice daily Nifedipine 90 Mg Tablet Extended Release 24hr (Nifedipine) ..... Take 1 tablet by mouth once a day Carvedilol 25 Mg Tablet (Carvedilol) ..... Take 1 tablet by mouth twice a day Losartan 100 Mg Tablet (Losartan) ..... Take 1 tablet by mouth once a day BP today: 133/87 P rior BP: 140/82 (04/01/2024) Labs Reviewed: C reat: 1.04 (02/10/2010) Orders: C OMPREHENSIVE METABOLIC PANEL, W/EGFR (55533) L IPID PANEL (7600) Matthias Moe MD Cardiology: O rders: C OMPREHENSIVE METABOLIC PANEL, W/EGFR (86717) L IPID PANEL (7600) Matthias Moe MD Cardiology: H is updated medication list for this problem includes: Nifedipine 90 Mg Tablet Extended Release 24hr (Nifedipine) ..... Take 1 tablet by mouth once a day Carvedilol 25 Mg Tablet (Carvedilol) ..... Take 1 tablet by mouth twice a day Losartan 100 Mg Tablet (Losartan) ..... Take 1 tablet by mouth once a day Orders: C OMPREHENSIVE METABOLIC PANEL, W/EGFR (19699) L IPID PANEL (7600) Matthias Moe MD Cardiology: O rders: C OMPREHENSIVE METABOLIC PANEL, W/EGFR (51858) L IPID PANEL (7600) Matthias Moe MD Cardiology:This visi t has been a part of the consistent, comprehensive, and ongoing management of the chronic medical condition(s) listed above for the patient. His updated medication list for this problem includes: Nifedipine 90 Mg Tablet Extended Release 24hr (Nifedipine) ..... Take 1 tablet by mouth once a day Carvedilol 25 Mg Tablet (Carvedilol) ..... Take 1 tablet by mouth twice a day Orders: C OMPREHENSIVE METABOLIC PANEL, W/EGFR (28617) L IPID PANEL (7600) Matthias Moe MD Cardiology:This visi t has been a part of the consistent, comprehensive, and ongoing management of the chronic medical condition(s) listed above for the patient. His updated medication list for this problem includes: Carvedilol 25 Mg Tablet (Carvedilol) ..... Take 1 tablet by mouth twice a day Nifedipine 90 Mg Tablet Extended Release 24hr (Nifedipine) ..... Take 1 tablet by mouth once a day Hydralazine 50 Mg Tablet (Hydralazine) ..... Take 1 tablet by mouth three times daily Losartan 100 Mg Tablet (Losartan) ..... Take 1 tablet by mouth once a day Matthias Moe MD Cardiology: H is updated medication list for this problem includes: Atorvastatin 40 Mg Tablet (Atorvastatin) ..... Take 1 tablet by mouth every day Ezetimibe 10 Mg Tablet (Ezetimibe) ..... Take 1 tablet by mouth every day Quan Olea Cardiology Quan Olea Cardiology [facility] Cardiology [facility] Cardiology: H is updated medication list for this problem includes: Carvedilol 25 Mg Tablet (Carvedilol) ..... Take 1 tablet by mouth twice a day Nifedipine 90 Mg Tablet Extended Release 24hr (Nifedipine) ..... Take 1 tablet by mouth once a day Losartan 100 Mg Tablet (Losartan) ..... Take 1 tablet by mouth once a day [facility] Cardiology [facility] Cardiology: B P today: 144/94 P rior BP: 170/108 (09/25/2023) Labs Reviewed: C reat: 1.04 (02/10/2010) [facility] Cardiology: H is updated medication list for this problem includes: Atorvastatin 40 Mg Tablet (Atorvastatin) ..... Take 1 tablet by mouth every day [facility] Cardiology: H is updated medication list for this problem includes: Carvedilol 25 Mg Tablet (Carvedilol) ..... Take 1 tablet by mouth twice a day Nifedipine 90 Mg Tablet Extended Release 24hr (Nifedipine) ..... Take 1 tablet by mouth once a day Losartan 100 Mg Tablet (Losartan) ..... Take 1 tablet by mouth once a day [facility] Cardiology: H is updated medication list for this problem includes: Carvedilol 25 Mg Tablet (Carvedilol) ..... Take 1 tablet by mouth twice a day Nifedipine 90 Mg Tablet Extended Release 24hr (Nifedipine) ..... Take 1 tablet by mouth once a day [facility] Cardiology: O rdgrupo: Cameron lara Study Home ([id number]) [facility] Cardiology: H is updated medication list for this problem includes: Carvedilol 25 Mg Tablet (Carvedilol) ..... Take 1 tablet by mouth twice a day Nifedipine 90 Mg Tablet Extended Release 24hr (Nifedipine) ..... Take 1 tablet by mouth once a day Losartan 100 Mg Tablet (Losartan) ..... Take 1 tablet by mouth once a day Quan Ahmedzai Cardiology: O rders: Cameron rubin Cardiac PET-CT (68557) Quan Ramirezmedzai Cardiology Quan Mukulmedzai Cardiology: B P today: 170/108 P rior BP: 166/101 (03/20/2023) Labs Reviewed: C reat: 1.04 (02/10/2010) The following medications were removed from the medication list: Hydralazine 25 Mg Tablet (Hydralazine) ..... Take 1 tablet by mouth twice daily His updated medication list for this problem includes: Carvedilol 25 Mg Tablet (Carvedilol) ..... Take 1 tablet by mouth twice a day Hydralazine 50 Mg Tablet (Hydralazine) ..... Take 1 tablet by mouth three times daily Nifedipine 90 Mg Tablet Extended Release 24hr (Nifedipine) ..... Take 1 tablet by mouth once a day Losartan 100 Mg Tablet (Losartan) ..... Take 1 tablet by mouth once a day Quan Ahmedzai Cardiology: H is updated medication list for this problem includes: Atorvastatin 40 Mg Tablet (Atorvastatin) ..... Take 1 tablet by mouth every day Quan Ahmedzai Cardiology Quan Ahmedzai Cardiology Quan Ahmedzai Cardiology Quan Ahmedzai Cardiology Quan Ahmedzai Cardiology Quan Ahmedzai Cardiology Quan Ahmedzai Cardiology Quan Ahmedzai Cardiology Quan Ahmedzai Cardiology Quan Ahmedzai Cardiology Quan Ahmedzai Cardiology Quan Ahmedzai Cardiology Quan Ahmedzai Cardiology Quan Ahmedzai Cardiology Quan Ahmedzai Cardiology Quan Ahmedzai Cardiology Quan Ahmedzai Cardiology Quan medzai follow up: O rders: C OMPREHENSIVE METABOLIC PANEL W/EGFR (61373) C BC (INCLUDES DIFF/PLT) (6399) Matthias Moe MD follow up: H is updated medication list for this problem includes: Atenolol 25 Mg Tabs (Atenolol) ..... One tab. daily BP today: 114/77 Prior BP: / () N uclear Stress Findings: No scintigraphic evidence of stress induced ischemia or wall motion abnormality. Left ventricular ejection fraction is 53% which is within normal limits. [facility] (10/05/2009) Orders: C OMPREHENSIVE METABOLIC PANEL W/EGFR ([id number]) T HYROID PANEL WITH TSH, 3RD GENERATION (7444) C BC (INCLUDES DIFF/PLT) (6399) Matthias Moe MD follow up: H is updated medication list for this problem includes: Atenolol 25 Mg Tabs (Atenolol) ..... One tab. daily Benicar Hct 40-25 Mg Tabs (Olmesartan medoxomil-hctz) ..... 1 tab by mouth daily BP today: 114/77 Matthias Moe MD Date Name LIPID PANEL COMPREHENSIVE METABO LIC PANEL, W/EGFR Sleep Study Home Stress Cardiac PET-C T Venous Doppler Bilat eral LE - Reflux CBC (H/H, RBC, INDIC ES, WBC, PLT) Testosterone; free LIPID PANEL COMPREHENSIVE METABO LIC PANEL, W/EGFR TSH, free T4, total T3 CBC (INCLUDES DIFF/P LT) HEMOGLOBIN A1c LIPID PANEL COMPREHENSIVE METABO LIC PANEL, W/EGFR Renal Artery Duplex CT, Coronary Calcium Score Stress Exercise Card iolite Complete Echo CBC (INCLUDES DIFF/P LT) THYROID PANEL WITH T SH, 3RD GENERATION COMPREHENSIVE METABO LIC PANEL W/EGFR HISTORY OF PROCEDURES Procedure Date Procedure Name Provider Procedure Notes S tatus Complex e/m visit add on Matthias Moe MD completed Complex e/m visit add on Matthias Moe MD completed Complex e/m visit add on Matthias oMe MD completed Complex e/m visit add on Matthias Moe MD completed EKG Matthias Moe MD completed CT- Coronary CA score Matthias Moe MD completed EKG Matthias Moe MD completed
== END 2024-08-09 11:20 | disposition home or self-care (01) ==
PROVIDERS: PCP Family Medicine; Visit Provider Family Medicine
DX: R91.8 Other nonspecific abnormal finding of lung field (principal); I31.39 Other pericardial effusion (noninflammatory)
CPT/HCPCS: 71250

== ENCOUNTER 2024-11-03 16:55 | Outpatient (CLI) | payer OTHER, SELFPAY ==
--- NOTE | ~2024-11-03 | CT_ITS ---
CT Scan of the Chest without Contrast: Clinical Indication: Lung nodules Technique: Contiguous sections were acquired throughout the chest without intravenous contrast. Dose reduction technique was used on this scan by utilizing automated exposure control and iterative recon struction technique. The dose-length product (DLP) was 238.77 mGy-cm. COMPARISON: 08/09/2024 Findings: There is no evidence of any significant mediastinal, hilar or axillary lymphadenopathy. Coronary aung ry calcifications are present. Minimal pericardial fluid present. No pleural effusions. Stable 6 mm pleural-based nodule in the posterior right lower lobe (axial image 82). Stable additiona l 4 mm right lower lobe pulmonary nodule (axial image 99). Stable additional 2 mm right basilar pulmo nary nodule (axial image 120). Stable 4 mm left basilar pulmonary nodule (axial image 127). Images through the upper abdomen reveal no abnormalities. Impression: Stable subcentimeter pulmonary nodules, as detailed above. Reviewed, dictated and finalized at [facility]. Impression: Stable subcentimeter pulmonary nodules, as detailed above.
--- OUTSIDE RECORDS SUMMARY | 2024-11-03 17:01 | XMS_ITS | Encounter Summary ---
Author Organization [facility] Address [address] [place] [address] Phone Care Team Providers Care Hide Cooking Operator Name Role Phone Clifford Jensen MD Primary Care Provider [phone] Reason for Visit * Reason Comments Medication Refill Encounter Details Date Type Department Care Team (Late st Contact Info) Description 03/15/2023 Refill [facility] - Family Medicine [facility] [address] [place] [address] Clifford Jensen MD [address] [address] Medication Refill Social History Tobacco Use Types [...] Zoila Gil RN - 03/15/2023 2:35 PM TOOLROOM CHECKER Medication failed the protocol, provider to review [...] Value Ref Range Status 10/08/2021 No Final ROOM CHECKER documented in this encounter Plan of Treatment Not on file documented as of this encounter Visit Diagnoses Not on filedocumented in this encounter Care Teams Hide Cooking Operator Relationship Specialty Start Date End Date Clifford Jensen MD [address] [address] PCP - General Family Medicine 09/27/21 documented as of this encounter
--- OUTSIDE RECORDS SUMMARY | 2024-11-03 17:01 | XMS_ITS | Encounter Summary ---
Author Organization [facility] Address [address] [place] [address] Care Team Providers Care Hotel Clerk Name Role Phone Antonio Timmons MD Primary Care Provider + Pam Mott INSTRUCTIONAL DESIGNER-C Primary Care Provider Heriberto Okeefe MD Primary Care Provider [phone] Encounter Details Date Type Department Care Team (Late st Contact Info) Description 10/05/2009 Abstract [facility] Conversion , Generic ConversionMD Social [...] on filedocumented in this encounter Care Teams Hotel Clerk Relationship Specialty Start Date End Date Antonio Timmons MD [address] [facility] [address] [place] [address] PCP - General FAMILY PRACTICE 02/07/18 11/16/19 Pam Mott INSTRUCTIONAL DESIGNER-C [facility] [facility] [address] [place] [address] PCP - General Nurse Practitioner Family 11/17/1911/28 Heriberto Okeefe MD [address] [address] PCP - General FAMILY PRACTICE 12/10/19 documented as of this encounter
--- OUTSIDE RECORDS SUMMARY | 2024-11-03 17:01 | XMS_ITS | Encounter Summary ---
Author Organization [facility] Address [address] [place] [address] Care Team Providers Care Chief Meteorologist Name Role Phone Heriberto Okeefe MD Primary Care Provider [phone] Encounter Details Date Type Department Care Team (Late st Contact Info) Description 01/03/2021 [employer] Message [facility] [address] [place] [address] Heriberto Okeefe MD [address] [address] RE: Other Social History Tobacco Use Types [...] documented as of this encounter Care Teams Chief Meteorologist Relationship Specialty Start Date End Date Heriberto Okeefe MD [address] [address] PCP - General FAMILY PRACTICE 12/10/19 documented as of this encounter
--- OUTSIDE RECORDS SUMMARY | 2024-11-03 17:01 | XMS_ITS | Clinical Summary ---
Author Organization [facility] Address Formerly [facility] [place] [address] Care Team Providers Care Director Water And Waste Services Name Role Phone Heriberto Okeefe MD Primary Care Provider Allergies Active Allergy Reactions Criticality Noted Date [...] anxiety disorder 03/18/2018 Chronic pain 03/18/2018 Immunizations Immunization Administration Dates Next Due Influenza (Generic) 03/27/2018 [...] 2:46 PM CDT Height 185.4 cm (6' 1) 11/12/2020 2:46 PM CDT Body Mass Index 32.03 11/12/2020 2:46 PM CDT Plan of Treatment Health Maintenance Due Date Last Done Comments Colorectal Cancer Screening Colonoscopy (10 Years) 1968 Annual Physical 11/11/1971 Hepatitis C 1986 Hepatitis B Vaccines (1 of 3 - 19+ 3-dose series) 11/11/1987 Pneumococcal Vaccine: 50+ Years (1 of 1 - PCV) 2018 Zoster Vaccines (1 of 2) 2018 DTaP, Tdap and Td Vaccines ( 2 - Td or Tdap) 09/13/2022 09/13/2012 COVID-19 Vaccine (3 - 2023-2 5 season) 2023 07/30/2020, 07/02/2020 PHQ-2 (Physician [place]) 04/30/2024 Meningococcal B Vaccine Aged Out No l onger eligible based on patient's age to complete this topic Meningococcal Vaccine Aged Out No lj ekaterina eligible based on patient's age to complete this topic RSV Immunizations Under 20 Months Aged Out No longer eligible b ased on patient's age to complete this topic Insurance Member Subscriber Plan / Payer (Ef fective 2020-Present) Name:GeniePhilip Relation to Subscriber:Self Name:Philip Garza Payer ID:[id number] ([facility]) Type:Not on file Address: [address] Care Teams Director Water And Waste Services Relationship Specialty Start Date End Date Heriberto Okeefe MD [address] [facility] [address] [place] [address] PCP - General FAMILY PRACTICE 12/10/19
--- OUTSIDE RECORDS SUMMARY | 2024-11-03 17:01 | XMS_ITS | Encounter Summary ---
Author Organization [facility] Address [address] [place] [address] Care Team Providers Care Licensed Vocational Nurse Name Role Phone Pam Mott SENIOR STATISTICIAN-C Primary Care Provider Heriberto Okeefe MD Primary Care Provider [phone] Encounter Details Date Type Department Care Team (Late st Contact Info) Description 12/08/2019 [employer] Message [facility] [address] [place] [address] Heriberto Okeefe MD [address] [phone] Medication Questions Social History Tobacco Use Types [...] Progress Notes * Heriberto Okeefe MD - 12/09/2019 11:10 AM CDT Ok for refill norco if due. documented in this encounter Plan of Treatment Not on file documented as of this encounter Visit Diagnoses Not on filedocumented in this encounter Care Teams Licensed Vocational Nurse Relationship Specialty Start Date End Date Pam Mott, SENIOR STATISTICIAN-C PCP - General Nurse Practitioner Family 11/17/1911/28 Heriberto Okeefe MD [address]01 [place] [address] PCP - General FAMILY PRACTICE 12/10/19 documented as of this encounter
--- OUTSIDE RECORDS SUMMARY | 2024-11-03 17:02 | XMS_ITS | Clinical Summary ---
Author Organization [employer] [facility] Address [address] [facility] Attn: Epic Prelude ADT [place] [address] Care Team Providers Care Center Consultant Name Role Phone Unavailable Primary Care Provider Unavailabl e Medications atorvastatin (LIPITOR) 40 mg tablet Take 1 Tablet (40 mg) by mouth daily. 90 Tablet 3 04/14/2024 3:57 PM CREATIVE RESOURCE MANAGER 4 Active ezetimibe (ZETIA) 10 mg tablet Take 1 Tablet (10 mg) by mouth daily. 90 Tablet 3 04/14/2024 3:57 PM CREATIVE RESOURCE MANAGER 4 Active carvediloL (COREG) 25 mg tablet Take 1 Tablet (25 mg) by mouth 2 times daily. 180 Tablet 3 04/14/2024 3:57 PM CREATIVE RESOURCE MANAGER 4 Active carvediloL (COREG) 25 mg tablet Take 1 Tablet (25 mg) by mouth 2 times daily. 180 Tablet 3 4 Active atorvastatin (LIPITOR) 20 mg tablet Take 1 Tablet (20 mg) by mouth daily. 90 Tablet 1 4 Active losartan (COZAAR) 100 mg tablet Take 1 Tablet (100 mg) by mouth daily. 90 Tablet 3 10/13/2024 7:32 PM CDT 4 Active carvediloL (COREG) 25 mg tablet Take 1 Tablet (25 mg) by mouth 2 times daily. 180 Tablet 3 07/27/2024 3:19 PM CDT 4 Active NIFEdipine (PROCARDIA XL) 90 mg Extended Release 24 hour tablet Take 1 Tablet (90 mg) by mouth daily. 90 Tablet 2 07/20/2024 2:59 PM CDT 4 Active fluticasone propionate (FLONASE) 50 mcg/spray [place], Suspension nasal inhaler Administer 2 sprays in each nostril once daily for 1 week, then may adjust to 1-2 sprays in each nostril once daily 16 Gram 06/02/2024 3:26 PM CREATIVE RESOURCE MANAGER 5 Active cephALEXin (KEFLEX) 500 mg capsule Take 1 capsule (500 mg total) by mouth 4 (four) times a day for 10 days 40 Capsule 06/02/2024 3:26 PM CREATIVE RESOURCE MANAGER 5 Active HYDROcodone-niraj taminophen (NORCO) 10-325 mg Tablet Take 1 Tablet by mouth 3 times daily as needed. Max Daily Amount: 3 Tablets 21 Tablet 06/07/2024 11:40 AM CREATIVE RESOURCE MANAGER 5 Active HYDROcodone-niraj taminophen (NORCO) 10-325 mg Tablet Take 1 Tablet by mouth 3 times daily as needed 21 Tablet 07/03/2024 12:19 PM CREATIVE RESOURCE MANAGER 5 Active HYDROcodone-niraj taminophen (NORCO) 10-325 mg Tablet Take 1 Tablet by mouth 3 times daily as needed. Max Daily Amount: 3 Tablets 21 Tablet 07/11/2024 6:40 PM CDT 5 Active omeprazole (PriLOSEC) 40 mg Capsule, Delayed Release(E.C.) Take 1 Capsule (40 mg) by mouth daily. 30 Capsule 5 07/23/2024 3:30 PM CDT 5 Active HYDROcodone-niraj taminophen (NORCO) 10-325 mg Tablet Take 1 Tablet by mouth 3 times daily as needed 90 Tablet 07/23/2024 3:30 PM CDT 5 Active HYDROcodone-niraj taminophen (NORCO) 10-325 mg Tablet Take 1 Tablet by mouth 3 times daily as needed 90 Tablet 5 Active HYDROcodone-niraj taminophen (NORCO) 10-325 mg Tablet Take 1 Tablet by mouth 3 times daily as needed 90 Tablet 08/26/2024 4:41 PM CDT 5 Active hydrALAZINE (APRESOLINE) 50 mg tablet Take 1 Tablet (50 mg) by mouth 3 times daily. 90 Tablet 6 08/03/2024 1:17 PM CDT 5 Active HYDROcodone-niraj taminophen (NORCO) 10-325 mg Tablet Take 1 Tablet by mouth 3 times daily as needed 90 Tablet 5 Active omeprazole (PriLOSEC) 40 mg Capsule, Delayed Release(E.C.) Take 1 Capsule (40 mg) by mouth daily. 30 Capsule 5 09/26/2024 7:35 PM CDT 5 Active HYDROcodone-niraj taminophen (NORCO) 10-325 mg Tablet Take 1 Tablet by mouth 3 times daily as needed. 90 Tablet 09/26/2024 7:35 PM CDT 5 Active HYDROcodone-niraj taminophen (NORCO) 10-325 mg Tablet Take 1 Tablet by mouth 3 times daily as needed. Do not fill before 12/18/2024. 90 Tablet 5 Active HYDROcodone-niraj taminophen (NORCO) 10-325 mg Tablet Take 1 Tablet by mouth 3 times daily as needed. 90 Tablet 10/23/2024 7:09 PM CDT 5 Active HYDROcodone-niraj taminophen (NORCO) 10-325 mg Tablet Take 1 Tablet by mouth 3 times daily as needed. Do not fill before 11/19/2024. 90 Tablet 5 Active Encounters Date Type Department Care Team Description 10/21/2024 External Device Data STL ABSTRACTION Provider, Abstract [...] (1 of 2) 2018 INFLUENZA VACCINE (#1) 2024 Insurance RX [employer] Member Subscriber Plan / Payer (Ef fective 2024-Present) Name:Philip Prescott Relation to Subscriber:Self Name:Philip Prescott Subscriber ID:Not on file Payer ID:Not on file Type:Not on file Address: [place] [employer] ([employer]) [facility] [employer]
--- OUTSIDE RECORDS SUMMARY | 2024-11-03 17:02 | XMS_ITS | Clinical Summary ---
Author Organization [facility] Address [address] [place] [address] Phone Care Team Providers Care Summer Sessions Director Name Role Phone Clifford Jensen MD Primary Care Provider [phone] Allergies Active Allergy Reactions Criticality Noted Date [...] of seizure disorder 11/24/2009 Primary hypertension 11/24/2009 Immunizations Immunization Administration Dates Next Due Influenza [...] drink = 0.6 oz pur e alcohol) [facility] Utilities Answer Date Recorded In the past 12 months has [employer] electric, gas, oil, or water [employer] threatened to shut off services in your home? No 08/20/2023 Social Connection and Isolation Panel Answer Date Recorded In a typical week, how many times do you talk on the phone with family, friends, or neighbors? Three times a week 08/20/2023 How often do you get togethe r with friends or relatives? Once a week 08/20/2023 How often do you attend chur ch or spiritism services? Never 08/20/2023 Do you belong to any clubs o r organizations such as druze groups, unions, fraternal or athletic groups, or [...] and heating? Not hard at all 08/20/2023 [facility] - Occupational Stress Questionnaire Answer Date Recorded [...] place to sleep or slept in a group home (including now)? No 08/20/2023 Sexually Active Control [...] 4:49 PM CDT Height 185.4 cm (6' 1) 11/30/2023 4:49 PM CDT Body Mass Index 35.62 11/30/2023 4:49 PM CDT Plan of Treatment Health Maintenance Due Date Last Done Comments Cologuard 2013 Colonoscopy 2013 Colorectal Cancer Screening 2013 Immunochemical Fecal Occult Blood 2013 Pneumococcal Immunization (50+ years) (1 of 1 [...] Discontinued Hepatitis C Virus (HCV) Screening Discontinued Human Papillomavirus (HPV) Immunization Aged Out No longer eligible based on patient's age to complete this topic Meningococcal Immunization (ACWY) Aged Out No longer [...] Britton Parson M.D. AM: AM Report ID: [id number] Reading Location: [id number] Procedure Note Britton Parson MD - 01/24/2024 [...] Britton Parson M.D. AM: AM Report ID: [id number] Reading Location: [place] [address] IMPRESSION: 1. Slight interval increase in size [...] of chest in 3 months. Divya Ochoa MULTIFOLD OPERATOR, HYBRID DERIVATIVES TRADER IMG CT ORDERABLES Fi nal Result * PSA SCREEN (08/28/2023 12:00 AM CDT) PSA SCREEN, TOTAL 0.4 SCAN 08/28/2023 Provider Scan CHEMISTRY ORDERABLES Final Resul t SCAN from Last 3 Months or Most Recently Relevant to Health Maintenance Insurance [facility] Care Teams Summer Sessions Director Relationship Specialty Start Date End Date Clifford Jensen MD [address] [place] [id number] PCP - General Family Medicine 09/27/21
--- OUTSIDE RECORDS SUMMARY | 2024-11-03 17:02 | XMS_ITS | Encounter Summary ---
Author Organization [facility] Address [address] [place] [address] Care Team Providers Care Radiologic Technologist Chief Name Role Phone Antonio Timmons MD Primary Care Provider + Pam Mott BEDSPRING ASSEMBLER-C Primary Care Provider Heriberto Okeefe MD Primary Care Provider [phone] Encounter Details Date Type Department Care Team (Late st Contact Info) Description 09/06/2006 Abstract [facility] Conversion , Generic ConversionMD Social [...] on filedocumented in this encounter Care Teams Radiologic Technologist Chief Relationship Specialty Start Date End Date Antonio Timmons MD [address] [facility] [address] [place] [address] PCP - General FAMILY PRACTICE 02/07/18 11/16/19 Pam Mott BEDSPRING ASSEMBLER-C 94[address] [facility] [address] [place] [address] PCP - General Nurse Practitioner Family 11/17/1911/28 Heriberto Okeefe MD [address] [address] PCP - General FAMILY PRACTICE 12/10/19 documented as of this encounter
--- OUTSIDE RECORDS SUMMARY | 2024-11-03 17:02 | XMS_ITS | Clinical Summary ---
Author Organization [facility] Address [address] [place] [address] Care Team Providers Care Plug Assembler Name Role Phone Unknown, Notinfile Primary Care [...] on file Legal Sex Male 7:29 PM TEST BAKER Gender Identity Not on file Sexual Orientation Not on file Obstetrics History Last Filed Vital Signs Vital Sign Reading Time Taken Comments Blood Pressure 131/83 06/02/2024 2:40 PM TEST BAKER Pulse 82 06/02/2024 2:40 PM TEST BAKER Temperature 36.5 C (97.7 F) 06/02/2024 2:40 PM TEST BAKER Respiratory Rate 22 06/02/2024 2:40 PM TEST BAKER Oxygen Saturation 94% 06/02/2024 2:40 PM TEST BAKER Inhaled Oxygen Concentration - - Weight 117.9 kg (260 lb) 06/02/2024 2:40 PM TEST BAKER Height - - Body Mass Index - - Plan of Treatment Health Maintenance Due Date Last Done Comments Colon Cancer Screening-Colonoscopy 1968 Depression Screening 1968 Hepatitis C Screening 1968 Prostate Cancer Screening-PSA 1968 Hepatitis B Screening 1986 Regular Well Visit/Exam 18-64 1986 Zoster Vaccine (1 of 2) 2018 Covid-19 Vaccine ( - 2023-2 5 season) 2023 07/30/2020, 07/02/2020 Influenza Vaccine (Season Ended) 2024 02/25/2021, 01/23/2020, 03/27/2018 DTaP/Tdap/Td Vaccine (3 - Td or Tdap) 08/20/2033 08/21/2023, 09/13/2012 Pneumococcal vaccine <65 Aged Out No longer eligible based on patient's age to complete this topic [place] [place] [address] Care Teams Plug Assembler Relationship Specialty Start Date End Date Unknown, Notinfile PCP - General 03/21/23
--- OUTSIDE RECORDS SUMMARY | 2024-11-03 17:02 | XMS_ITS | Referral Summary ---
Author Organization [facility] Address [address] [place] [address] Care Team Providers Care Keypuncher Name Role Phone Unknown, Notinfile Primary Care [...] on file Legal Sex Male 7:29 PM JOURNEYMAN PIPEFITTER Gender Identity Not on file Sexual Orientation Not on file Last Filed Vital Signs Vital Sign Reading Time Taken Comments Blood Pressure 131/83 06/02/2024 2:40 PM JOURNEYMAN PIPEFITTER Pulse 82 06/02/2024 2:40 PM JOURNEYMAN PIPEFITTER Temperature 36.5 C (97.7 F) 06/02/2024 2:40 PM JOURNEYMAN PIPEFITTER Respiratory Rate 22 06/02/2024 2:40 PM JOURNEYMAN PIPEFITTER Oxygen Saturation 94% 06/02/2024 2:40 PM JOURNEYMAN PIPEFITTER Inhaled Oxygen Concentration - - Weight 117.9 kg (260 lb) 06/02/2024 2:40 PM JOURNEYMAN PIPEFITTER Height - - Body Mass Index - - Plan of Treatment Not on file Insurance Care Teams Keypuncher Relationship Specialty Start Date End Date Unknown, Notinfile PCP - General 03/21/23
== END 2024-11-03 16:56 | disposition home or self-care (01) ==
PROVIDERS: PCP Family Medicine; Visit Provider Family Medicine
DX: R91.8 Other nonspecific abnormal finding of lung field (principal)
CPT/HCPCS: 71250

== ENCOUNTER 2024-12-25 15:24 | Outpatient (CLI) | payer OTHER, SELFPAY ==
--- OUTSIDE RECORDS SUMMARY | 2024-12-25 15:29 | XMS_ITS | Encounter Summary ---
Author Organization [facility] Address [address] [place] [address] Care Team Providers Care Virologist Name Role Phone Antonio Timmons MD Primary Care Provider + Pam Mott TRACTOR MECHANIC APPRENTICE-C Primary Care Provider Heriberto Okeefe MD Primary Care Provider [phone] Encounter Details Date Type Department Care Team (Late st Contact Info) Description 09/06/2006 Abstract [facility] Conversion , Generic ConversionMD Social History [...] on filedocumented in this encounter Care Teams Virologist Relationship Specialty Start Date End Date Antonio Timmons MD [address]01 [facility] [address] [place] [address] PCP - General FAMILY PRACTICE 02/07/18 11/16/19 Pam Mott TRACTOR MECHANIC APPRENTICE-C [facility] [place] [address] PCP - General Nurse Practitioner Family 11/17/1911/28 Heriberto Okeefe MD [address] [address] PCP - General FAMILY PRACTICE 12/10/19 documented as of this encounter
--- OUTSIDE RECORDS SUMMARY | 2024-12-25 15:29 | XMS_ITS | Encounter Summary ---
Author Organization [facility] Address [address] [place] [address] Care Team Providers Care Archeology Professor Name Role Phone Pam Mott LOCKSTITCH POCKET SETTER-C Primary Care Provider Heriberto Okeefe MD Primary Care Provider Encounter Details Date Type Department Care Team (Late st Contact Info) Description 12/08/2019 [email or web address] Message [facility] [address] [place] [address] Heriberto Okeefe MD [address] [phone] Medication Questions Social History Tobacco Use Types [...] on filedocumented in this encounter Care Teams Archeology Professor Relationship Specialty Start Date End Date Pam Mott, LOCKSTITCH POCKET SETTER-C PCP - General Nurse Practitioner Family 11/17/1911/28 Heriberto Okeefe MD [address] [place] [address] PCP - General FAMILY PRACTICE 12/10/19 documented as of this encounter
--- OUTSIDE RECORDS SUMMARY | 2024-12-25 15:29 | XMS_ITS | Encounter Summary ---
Author Organization [facility] Address [address] [place] [address] Phone Care Team Providers Care Viscera Washer Name Role Phone Clifford Jensen MD Primary Care Provider [phone] Reason for Visit * Reason Comments Medication Refill Encounter Details Date Type Department Care Team (Late st Contact Info) Description 03/15/2023 Refill [facility] [address] [place] [address] Clifford Jensen MD [address] [address] Medication Refill Social History Tobacco Use Types [...] Zoila Gil RN - 03/15/2023 2:35 PM GROUND WOOD SUPERVISOR Medication failed the protocol, provider to review [...] Value Ref Range Status 10/08/2021 No Final ND WOOD SUPERVISOR documented in this encounter Plan of Treatment Not on file documented as of this encounter Visit Diagnoses Not on filedocumented in this encounter Care Teams Viscera Washer Relationship Specialty Start Date End Date Clifford Jensen MD [address] [address] PCP - General Family Medicine 09/27/21 documented as of this encounter
--- OUTSIDE RECORDS SUMMARY | 2024-12-25 15:29 | XMS_ITS | Clinical Summary ---
Author Organization [employer] [facility] Address [address] [facility] Attn: Epic Prelude ADT SIRI HOLT [place] [address] Care Team Providers Care Junk Removal Specialist Name Role Phone Unavailable Primary Care Provider Unavailabl e Medications atorvastatin (LIPITOR) 40 mg tablet Take 1 Tablet (40 mg) by mouth daily. 90 Tablet 3 04/14/2024 3:57 PM SALES DEVELOPMENT MANAGER 4 Active ezetimibe (ZETIA) 10 mg tablet Take 1 Tablet (10 mg) by mouth daily. 90 Tablet 3 04/14/2024 3:57 PM SALES DEVELOPMENT MANAGER 4 Active carvediloL (COREG) 25 mg tablet Take 1 Tablet (25 mg) by mouth 2 times daily. 180 Tablet 3 04/14/2024 3:57 PM SALES DEVELOPMENT MANAGER 4 Active carvediloL (COREG) 25 mg [...] mouth 2 times daily. 180 Tablet 3 11/07/2024 5:12 PM CDT 4 Active NIFEdipine (PROCARDIA XL) 90 mg Extended Release 24 hour tablet Take 1 Tablet (90 mg) by mouth daily. 90 Tablet 2 12/24/2024 5:02 PM CDT 4 Active fluticasone propionate (FLONASE) 50 mcg/spray [place], Suspension nasal inhaler Administer 2 sprays in each nostril once daily for 1 week, then may adjust to 1-2 sprays in each nostril once daily 16 Gram 06/02/2024 3:26 PM SALES DEVELOPMENT MANAGER 5 Active cephALEXin (KEFLEX) 500 mg capsule Take 1 capsule (500 mg total) by mouth 4 (four) times a day for 10 days 40 Capsule 06/02/2024 3:26 PM SALES DEVELOPMENT MANAGER 5 Active HYDROcodone-niraj taminophen (NORCO) 10-325 mg Tablet Take 1 Tablet by mouth 3 times daily as needed. Max Daily Amount: 3 Tablets 21 Tablet 06/07/2024 11:40 AM SALES DEVELOPMENT MANAGER 5 Active HYDROcodone-niraj taminophen (NORCO) 10-325 mg Tablet Take 1 Tablet by mouth 3 times daily as needed 21 Tablet 07/03/2024 12:19 PM SALES DEVELOPMENT MANAGER 5 Active HYDROcodone-niraj taminophen (NORCO) 10-325 [...] 3 times daily as needed. 90 Tablet 11/24/2024 5:38 PM CDT 5 Active Encounters Date Type Department Care [...]
--- OUTSIDE RECORDS SUMMARY | 2024-12-25 15:29 | XMS_ITS | Clinical Summary ---
Author Organization [facility] Address [address] [place] [address] Phone Care Team Providers Care Records Analyst Name Role Phone Clifford Jensen MD Primary Care Provider [phone] Allergies Active Allergy Reactions Criticality Noted Date [...] drink = 0.6 oz pur e alcohol) [facility] Utilities Answer Date Recorded In the past 12 months has [employer] electric, gas, oil, or water [employer] threatened to shut off services in your [...] often do you attend chur ch or yazidism services? Never 08/20/2023 Do you belong to any clubs o r organizations such as hindu groups, unions, fraternal or athletic groups, or [...] and heating? Not hard at all 08/20/2023 [facility] - Occupational Stress Questionnaire Answer Date Recorded [...] place to sleep or slept in a penitentiary (including now)? No 08/20/2023 Sexually Active Control [...] Immunization (1 of 2) 2018 Influenza Immunization (#1) 12/29/202401/29, 02/25/2021, 01/23/2020, Additional history exists Td Immunization Every 10 Years (Adults With 1 Tdap) 08/20/2033 08/21/2023, 09/13/2012 Respiratory Syncytial Virus (RSV) Immunization (Adult) (1 - 1-dose 75+ series) 11/11/2043 SARS-COV-2 Immunization Discontinued 07/30/2020, 07/02 DTaP/Tdap/Td Immunization Discontinued 08/21/2023, PSA Discussion Completed 08/28/2023, 09/28, 08/08/2016 Lung Cancer Screening Discontinued 01/19/2024, 024 Hepatitis B Immunization Discontinued Hepatitis C Virus [...] Britton Parson M.D. AM: AM Report ID: [id number] Reading Location: [id number] Procedure Note Britton Parson MD - 01/24/2024 [...] Britton Parson M.D. AM: AM Report ID: [id number] Reading Location: [place] [address] IMPRESSION: 1. Slight interval increase in size [...] of chest in 3 months. Divya Ochoa AEROGRAPHER, RESERVATIONS CLERK IMG CT ORDERABLES Fi nal Result * PSA SCREEN (08/28/2023 12:00 AM CDT) PSA SCREEN, TOTAL 0.4 SCAN 08/28/2023 Provider Scan CHEMISTRY ORDERABLES Final Resul t SCAN from Last 3 Months or Most Recently Relevant to Health Maintenance Insurance [facility] Care Teams Records Analyst Relationship Specialty Start Date End Date Clifford Jensen MD [address] [address] PCP - General Family Medicine 09/27/21
--- OUTSIDE RECORDS SUMMARY | 2024-12-25 15:29 | XMS_ITS | Encounter Summary ---
Author Organization [facility] Address [address] [place] [address] Care Team Providers Care Human Resources Operations Director Name Role Phone Antonio Timmons MD Primary Care Provider + Pam Mott BUILDING ILLUMINATING ENGINEER-C Primary Care Provider Heriberto Okeefe MD Primary Care Provider [phone] Encounter Details Date Type Department Care Team (Late st Contact Info) Description 10/05/2009 Abstract [facility] Conversion , Generic ConversionMD Social History [...] on filedocumented in this encounter Care Teams Human Resources Operations Director Relationship Specialty Start Date End Date Antonio Timmons MD [address] [facility] [address] [place] [address] PCP - General FAMILY PRACTICE 02/07/18 11/16/19 Pam Mott BUILDING ILLUMINATING ENGINEER-C [address] [facility] [address] [place] [address] PCP - General Nurse Practitioner Family 11/17/1911/28 Heriberto Okeefe MD [address] [address] PCP - General FAMILY PRACTICE 12/10/19 documented as of this encounter
--- OUTSIDE RECORDS SUMMARY | 2024-12-25 15:29 | XMS_ITS | Clinical Summary ---
Author Organization [facility] Address [facility] [place] [address] Care Team Providers Care Nuclear Plant Instrument Technician Name Role Phone Heriberto Okeefe MD Primary [...] 5 season) 2023 07/30/2020, 07/02/2020 PHQ-2 (Physician Marshall) 04/30/2024 Meningococcal B Vaccine Aged Out No [...] Relation to Subscriber:Self Name:Philip Garza Payer ID:[id number] ([facility]) Type:Not on file Address: [address] Care Teams Nuclear Plant Instrument Technician Relationship Specialty Start Date End Date Heriberto Okeefe MD [address] [facility] [address] [place] [address] PCP - General FAMILY PRACTICE 12/10/19
--- OUTSIDE RECORDS SUMMARY | 2024-12-25 15:29 | XMS_ITS | Clinical Summary ---
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 Gender Identity Not on file Sexual Orientation Not on file Obstetrics History Last Filed Vital Signs Vital Sign Reading Time Taken Comments Blood Pressure 131/83 06/02/2024 2:40 PM SOFTWARE DEVELOPMENT PROJECT MANAGER Pulse 82 06/02/2024 2:40 PM SOFTWARE DEVELOPMENT PROJECT MANAGER Temperature 36.5 C (97.7 F) 06/02/2024 2:40 PM SOFTWARE DEVELOPMENT PROJECT MANAGER Respiratory Rate 22 06/02/2024 2:40 PM SOFTWARE DEVELOPMENT PROJECT MANAGER Oxygen Saturation 94% 06/02/2024 2:40 PM SOFTWARE DEVELOPMENT PROJECT MANAGER Inhaled Oxygen Concentration - - Weight 117.9 kg (260 lb) 06/02/2024 2:40 PM SOFTWARE DEVELOPMENT PROJECT MANAGER Height - - Body Mass Index - - Plan of Treatment Health Maintenance Due Date Last Done Comments Colon Cancer Screening-Colonoscopy 1968 Depression Screening 1968 Hepatitis C Screening 1968 Prostate Cancer Screening-PSA 1968 Hepatitis B Screening 1986 Regular Well Visit/Exam 18-64 1986 Zoster Vaccine (1 of 2) 2018 Covid-19 Vaccine (3 - 2023-2 5 season) 2023 07/30/2020, 07/02/2020 Influenza Vaccine (#1) 2024 , 01/23/2020, 03/27/2018 DTaP/Tdap/Td Vaccine (3 - Td or Tdap) 08/20/2033 08/21/2023, 09/13/2012 Pneumococcal vaccine <65 Aged Out No longer eligible based on patient's age to complete this topic [place] [address] [place] [address] Relationship Specialty Start Date End Date Unknown, Notinfile PCP - General 03/21/23
--- OUTSIDE RECORDS SUMMARY | 2024-12-25 15:29 | XMS_ITS | Encounter Summary ---
Author Organization [facility] Address [address] [place] [address] Care Team Providers Care Pediatric Licensed Practical Nurse Name Role Phone Heriberto Okeefe MD Primary Care Provider [phone] Encounter Details Date Type Department Care Team (Late st Contact Info) Description 01/03/[address] [employer] [address] [facility] [address] [place] [address] Heriberto Okeefe MD [address] [address] RE: Other Social History Tobacco Use Types [...] documented as of this encounter Care Teams Pediatric Licensed Practical Nurse Relationship Specialty Start Date End Date eHriberto Okeefe MD [address] [address] PCP - General FAMILY PRACTICE 12/10/19 documented as of this encounter
[2024-12-25 15:59] LABS: Hematocrit 42.8 % (42.0-52.0); Hemoglobin 14.2 g/dL (14.0-18.0); Immature Granulocyte Percent A 0.4 % (0-0.5); Lymphocytes Absolute Auto 2.21 K/mm3 (0.9-3.2); Mean Corpuscular HGB Conc 33.2 g/dl (32-36); Mean Corpuscular Hemoglobin 28.7 pg (26-34); Mean Corpuscular Volume 86.5 fl (80-100); Nucleated Red Blood Cells Absolute Auto 0.000 K/mm3 (0.0-0.012); Nucleated Red Blood Cells Perc 0.0 % (0.0-0.2); Platelet Count Result 206 k/mm3 (150-375); Red Blood Count 4.95 M/mm3 (4.6-6.20); White Blood Count 7.2 K/mm3 (4.5-10.0)
[2024-12-25 16:15] LABS: Alanine Aminotransferase 23 U/L (6-50); Albumin Level 4.5 g/dL (3.5-5.1); Alkaline Phosphatase 68 U/L (38-126); Anion Gap 8 mmol/L (4-12); Aspartate Amino Transferase 29 U/L (17-59); Bilirubin,Total 0.6 mg/dL (0.2-1.3); Blood Urea Nitrogen 13 mg/dL (9-20); Calcium 9.4 mg/dL (8.4-10.2); Carbon Dioxide 26 mmol/L (22-30); Chloride 101 mmol/L (98-107); Estimated Glomerular Filt Rate > 60; Glucose 88 mg/dL (65-110); Magnesium 1.8 mg/dL (1.6-2.3); Potassium 4.2 mmol/L (3.4-5.0); Sodium 135 mmol/L (137-145); Total Protein 7.9 g/dL (6.3-8.2)
[2024-12-25 16:51] LABS: Thyroid Stimulating Hormone 1.860 uIU/mL (0.465-4.680)
[2024-12-25 17:12] LABS: Iron 116 ug/dL (49-181)
[2024-12-25 17:22] LABS: Percent Iron Saturation 33 % (20-50)
[2024-12-25 17:26] LABS: Vitamin B12 359.0 pg/mL (239-931)
[2024-12-25 17:46] LABS: Hemoglobin A1C 5.6 % (<5.7)
== END 2024-12-25 15:25 | disposition home or self-care (01) ==
LOC: ANHLAB 15:26
PROVIDERS: PCP Family Medicine; Visit Provider Family Medicine
DX: R73.03 Prediabetes (principal); I10 Essential (primary) hypertension; E55.9 Vitamin D deficiency, unspecified; F41.0 Panic disorder [episodic paroxysmal anxiety]
CPT/HCPCS: 36415; 80053; 82306; 82607; 82746; 83036; 83540; 83550; 83735; 84443; 85025

== ENCOUNTER 2024-12-27 13:11 | Emergency (ER) | payer OTHER, SELFPAY ==
--- OUTSIDE RECORDS SUMMARY | 2024-12-27 13:13 | XMS_ITS | Clinical Summary ---
Author Organization [facility] Address [address] [facility] Attn: Epic Prelude ADT [place] [address] Care Team Providers Care Display Specialist Name Role Phone Unavailable Primary Care Provider Unavailabl e Medications atorvastatin (LIPITOR) 40 mg tablet Take 1 Tablet (40 mg) by mouth daily. 90 Tablet 3 04/14/2024 3:57 PM HOUSE PRINCIPAL 4 Active ezetimibe (ZETIA) 10 mg tablet Take 1 Tablet (10 mg) by mouth daily. 90 Tablet 3 04/14/2024 3:57 PM HOUSE PRINCIPAL 4 Active carvediloL (COREG) 25 mg tablet Take 1 Tablet (25 mg) by mouth 2 times daily. 180 Tablet 3 04/14/2024 3:57 PM HOUSE PRINCIPAL 4 Active carvediloL (COREG) 25 mg tablet [...] 4 Active fluticasone propionate (FLONASE) 50 mcg/spray [place], Suspension nasal inhaler Administer 2 sprays in each nostril once daily for 1 week, then may adjust to 1-2 sprays in each nostril once daily 16 Gram 06/02/2024 3:26 PM HOUSE PRINCIPAL 5 Active cephALEXin (KEFLEX) 500 mg capsule Take 1 capsule (500 mg total) by mouth 4 (four) times a day for 10 days 40 Capsule 06/02/2024 3:26 PM HOUSE PRINCIPAL 5 Active HYDROcodone-niraj taminophen (NORCO) 10-325 mg Tablet Take 1 Tablet by mouth 3 times daily as needed. Max Daily Amount: 3 Tablets 21 Tablet 06/07/2024 11:40 AM HOUSE PRINCIPAL 5 Active HYDROcodone-niraj taminophen (NORCO) 10-325 mg Tablet Take 1 Tablet by mouth 3 times daily as needed 21 Tablet 07/03/2024 12:19 PM HOUSE PRINCIPAL 5 Active HYDROcodone-niraj taminophen (NORCO) 10-325 mg [...] 3 times daily as needed. 90 Tablet 12/26/2024 5:43 PM CDT 5 Active HYDROcodone-niraj taminophen (NORCO) [...]
--- OUTSIDE RECORDS SUMMARY | 2024-12-27 13:13 | XMS_ITS | Clinical Summary ---
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 Gender Identity Not on file Sexual Orientation Not on file Obstetrics History Last Filed Vital Signs Vital Sign Reading Time Taken Comments Blood Pressure 131/83 06/02/2024 2:40 PM POWER SHOVEL MECHANIC Pulse 82 06/02/2024 2:40 PM POWER SHOVEL MECHANIC Temperature 36.5 C (97.7 F) 06/02/2024 2:40 PM POWER SHOVEL MECHANIC Respiratory Rate 22 06/02/2024 2:40 PM POWER SHOVEL MECHANIC Oxygen Saturation 94% 06/02/2024 2:40 PM POWER SHOVEL MECHANIC Inhaled Oxygen Concentration - - Weight 117.9 kg (260 lb) 06/02/2024 2:40 PM POWER SHOVEL MECHANIC Height - - Body Mass Index - [...] patient's age to complete this topic [place] [address] [address] Care Teams Residential Property Manager Relationship Specialty Start Date End Date Unknown, Notinfile PCP - General 03/21/23
--- OUTSIDE RECORDS SUMMARY | 2024-12-27 13:13 | XMS_ITS | Encounter Summary ---
Author Organization [facility] Address [address] [place] [address] Phone Care Team Providers Care Senior Cytogenetics Laboratory Director Name Role Phone Clifford Jensen MD Primary Care Provider [phone] Reason for Visit * Reason Comments Medication Refill Encounter Details Date Type Department Care Team (Late st Contact Info) Description 03/15/2023 Refill [facility] - Family Medicine [facility] [address] [place] [address] Clifford Jensen MD [address] [address] Medication Refill Social History Tobacco Use Types [...] Zoila Gil RN - 03/15/2023 2:35 PM AREA SECRETARY Medication failed the protocol, provider to review [...] Value Ref Range Status 10/08/2021 No Final SECRETARY documented in this encounter Plan of Treatment Not on file documented as of this encounter Visit Diagnoses Not on filedocumented in this encounter Care Teams Senior Cytogenetics Laboratory Director Relationship Specialty Start Date End Date Clifford Jensen MD [address] [address] PCP - General Family Medicine 09/27/21 documented as of this encounter
--- OUTSIDE RECORDS SUMMARY | 2024-12-27 13:13 | XMS_ITS | Encounter Summary ---
Author Organization [facility] Address [address] [place] [address] Phone Care Team Providers Care Technical Account Manager Name Role Phone Clifford Jensen MD Primary Care Provider [phone] Encounter Details Date Type Department Care Team (Late st Contact Info) Description 12/27/2024 [facility] [address] [place] [address] Danyell Sanders APRN, TRANSPORTATION [employer] [address] [place] [address] Social History Tobacco Use Types Packs/Day Years Used Date Smoking Tobacco: Former Cigarettes 1.5 38 0 07/29/1984 - 07/29/2022 Smokeless Tobacco: Never Alcohol Use Standard Drinks/Week Comments Not Currently 0 (1 standard drink = 0.6 oz pur e alcohol) [facility] Utilities Answer Date Recorded In the past 12 months has [employer], gas, oil, or water [employer] threatened to shut off services in your home? No 08/20/2023 Social Connection and Isolation Panel Answer Date Recorded In a typical week, how many times do you talk on the phone with family, friends, or neighbors? Three times a week 08/20/2023 How often do you get togethe r with friends or relatives? Once a week 08/20/2023 How often do you attend chur or sabianist services? Never 08/20/2023 Do you belong to any clubs o r organizations such as muslim groups, unions, fraternal or athletic groups, or [...] and heating? Not hard at all 08/20/2023 [facility] - Occupational Stress Questionnaire Answer Date [...] place to sleep or slept in a fdc (including now)? No 08/20/2023 Sexually Active Control [...] on filedocumented in this encounter Care Teams Technical Account Manager Relationship Specialty Start Date End Date Clifford Jensen MD [address] [address] PCP - General Family Medicine 09/27/21 documented as of this encounter
--- OUTSIDE RECORDS SUMMARY | 2024-12-27 13:15 | XMS_ITS | Clinical Summary ---
Author Organization [facility] Address [address] [place] [address] Phone Care Team Providers Care Baker Second Name Role Phone Clifford Jensen MD Primary Care Provider [phone] Allergies Active Allergy Reactions Criticality Noted Date [...] Encounters Date Type Department Care Team Description 12/27/2024 [facility] [address] [place] [address] Danyell Sanders, DIRECTOR TRAFFIC AND PLANNING, BRITTANY from Last 3 Months Immunizations Immunization Administration [...] drink = 0.6 oz pur e alcohol) [facility] Utilities Answer Date Recorded In the past 12 months has [employer], gas, oil, or water [employer] threatened to shut off services in your [...] often do you attend chur ch or jewish services? Never 08/20/2023 Do you belong to any clubs o r organizations such as buddhist groups, unions, fraternal or athletic groups, or [...] and heating? Not hard at all 08/20/2023 [facility] - Occupational Stress [...] place to sleep or slept in a mcfp (including now)? No 08/20/2023 Sexually Active Control [...] Britton Parson M.D. AM: AM Report ID: [id number] Reading Location: [place] [address] Procedure Note Britton Parson MD - 01/24/2024 [...] Britton Parson M.D. AM: AM Report ID: [id number] Reading Location: [id number] IMPRESSION: 1. Slight interval increase in size [...] of chest in 3 months. Divya Ochoa DIRECTOR TRAFFIC AND PLANNING, CONSULTING UTILITY FORESTER IMG CT ORDERABLES Fi nal Result * PSA SCREEN (08/28/2023 12:00 AM CDT) PSA SCREEN, TOTAL 0.4 SCAN 08/28/2023 Provider Scan CHEMISTRY ORDERABLES Final Resul t SCAN from Last 3 Months or Most Recently Relevant to Health Maintenance Insurance [facility] Care Teams Baker Second Relationship Specialty Start Date End Date Clifford Jensen MD [address] [address] PCP - General Family Medicine 09/27/21
[2024-12-27 13:18] VITALS: BP 140/84; PULSE 78; RESP 18; TEMP 36.4; O2SAT 97
--- NOTE | 2024-12-27 13:40 | ED_ITS ---
HPI - Dental/Oral General Chief complaint: Dental/Oral Stated complaint: oral pain Time Seen by Provider: 12/27/24 13:13 Source: patient and family ( ) Mode of arrival: ambulatory Limitations: no limitations History of Present Illness HPI Narrative: 54-year-old male presents to [facility] accompanied by his for complaints of right lower tooth pain for the past 3-4 days. Patient reports history of dental issues. Patient reports that he did call and visit the scene [facility] and was prescribed Augmentin at that time. Patient reports that he has taken Toradol in the past which has helped with the dental pain. patient denies fever, body aches, chills, nausea, vomiting or diarrhea. MD Complaint: tooth pain Location: Tooth # (27) Onset (ago): day(s) (4) Related Data Home Medications ?Medication ?Instructions ?Recorded ?Confirmed ?Last Taken ?Type amoxicillin 875 mg-potassium tablet 12/27/24 Unknown History clavulanate 125 mg tablet carvedilol 25 mg tablet mg 12/27/24 Unknown History hydralazine 50 mg tablet mg 12/27/24 Unknown History hydrocodone 10 mg-acetaminophen tablet 12/27/24 Unkno wn History 325 mg tablet losartan 100 mg tablet mg 12/27/24 Unknown History melatonin 5 mg capsule mg 12/27/24 Unknown History nifedipine 90 mg tablet,extended mg PO 12/27/24 Unkno wn History release 24 hr omeprazole 40 mg capsule,delayed mg 12/27/24 Unknown History release Allergies Allergy/AdvReac Type Severity Reaction Status Date / Time tramadol (From [facility]) Allergy Mild Seizure Verified 12/27/24 13:22 Review of Systems Constitutional: Constitutional: Denies chills, Denies fatigue, Denies fever(s) and Denies weakness ENT: Denies vertigo, Denies dizziness and Denies epistaxis Comments: Right lower dental pain Cardiovascular: Cardiovascular: Denies chest pain Respiratory: Respiratory: Denies cough, Denies dyspnea and Denies wheezing Gastrointestinal: Gastrointestinal: Denies diarrhea, Denies nausea and Denies vomiting Musculoskeletal: Musculoskeletal: Denies arthralgias and Denies joint swelling Integumentary/Breasts: Skin/Breast: Denies erythema and Denies rash Neurologic: Denies dizziness and Denies syncope PMFSH Comments At time of signature, I agree with nursing past medical, surgical, social and family history. There is no relevant family history pertinent to the presenting complaint. Exam Const: General: healthy appearing and no acute distress Nutritional Appearance: well nourished Orientation/consciousness: patient oriented x3 Limitations: no limitations HENMT: Head: normal to inspection Teeth and gingiva: abnormal tooth and associated gingiva ( ) Other: Multiple missing teeth noted, there is redness and swelling noted surrouding to tooth number 27. There is no obvious abscess noted Eyes: Conjunctivae: conjunctivae normal Neck: Neck: normal visual inspection Resp: Effort & Inspection: normal respiratory effort and not labored Auscultation: clear to auscultation bilaterally, no crackles, no rales, no rhonchi and no wheezes Cardio: Rate: regular rate Rhythm: regular rhythm Heart sounds: no murmurs Skin: General skin exam: normal color Rashes: no rashes Wounds: no wounds Neuro: General: patient oriented x3 Speech: normal speech Gait exam (Ne uro): Normal gait present Psych: Affect: normal affect Attitude: cooperative Course Course Level of Care: Express Care Visit Vital Signs Vital signs: Vital Signs Temperature 36.4 C L 12/27/24 13:18 Pulse Rate 78 12/27/24 13:18 Respiratory Rate 18 12/27/24 13:18 Blood Pressure 140/84 12/27/24 13:18 Pulse Oximetry 97 12/27/24 13:18 Oxygen Delivery Room Air 12/27/24 13:18 Temperature 36.4 C L 12/27/24 13:18 Pulse Rate 78 12/27/24 13:18 Respiratory Rate 18 12/27/24 13:18 Blood Pressure 140/84 12/27/24 13:18 Pulse Oximetry 97 12/27/24 13:18 Oxygen Delivery Room Air 12/27/24 13:18 MDM - Dental/Oral MDM Narrative Medical decision making narrative: encouraged patient to take antibiotic as prescribed. encouraged patient not to take other NSAIDs while taking the Toradol. Encouraged patient to complete warm saltwater gargles as needed. Encouraged patient to proceed to emergency room if symptoms worsen Differential Diagnosis Differential diagnosis: Likely dental abscess and fracture of tooth Critical Care Time Critical Care Time Critical Care Time: No Discharge Plan Discharge Clinical Impression: Toothache Patient Disposition: Home Condition: Stable Instructions: Toothache (ED) Additional Instructions: Complete warm salt water gargles Do not take other NSAIDs while taking Toradol Take OTC Tylenol as needed Follow-up with dentist to re-evaluate symptoms Start antibiotic as prescribed per [facility] Patient Language: Montenegrin Prescriptions: New ketorolac 10 mg tablet 10 mg PO Q8H PRN (Reason: pain) Qty: 10 0RF No Action carvedilol 25 mg tablet hydrocodone-acetaminophen 10-325 mg tablet omeprazole 40 mg capsule,delayed release(DR/EC) nifedipine 90 mg tablet extended release 24hr PO hydralazine 50 mg tablet losartan 100 mg tablet amoxicillin-pot clavulanate 875-125 mg tablet melatonin 5 mg capsule Follow-up/Referrals: Greg,Cierra Cook MD [Primary Care Provider, Unknown] Stand Alone Forms: Work/School Release IP Time of Disposition: 13:51
== END 2024-12-27 13:56 | disposition home or self-care (01) ==
PROVIDERS: Emergency Provider Nurse Practitioner Family; PCP Family Medicine
DX: K08.89 Other specified disorders of teeth and supporting structures (principal)
CPT/HCPCS: 99203; G0463